=== PATIENT | male | born 1955 | race Caucasian/White ===

== ENCOUNTER 2018-07-10 06:11 | Inpatient (IN) ==
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
--- NOTE | 2018-06-11 11:09 | PAT Medication Instructions ---
Medication Instructions Date of Service June 11, 2018 Home Medications acetaminophen [Tylenol Arthritis 1,300 mg PO Q8H PRN cholecalciferol (vitamin D3) 5,000 unit PO QAM colestipol 1 g PO QPM cyanocobalamin (vitamin B-12) 1,000 mcg IM UD glipizide 5 mg PO BID lisinopril 10 mg PO QAM metformin 1,000 mg PO TID metoprolol succinate 25 mg PO QAM simvastatin 20 mg PO PM trazodone 50 mg PO QPM STOP taking 24 hours before surgery colestipol 1 g PO QPM DO NOT take the morning of surgery cholecalciferol (vitamin D3) 5,000 unit PO QAM cyanocobalamin (vitamin B-12) 1,000 mcg IM UD glipizide 5 mg PO BID lisinopril 10 mg PO QAM metformin 1,000 mg PO TID Take morning of surgery With a small sip of water, OTHERWISE NOTHING TO EAT OR DRINK AFTER MIDNIGHT: acetaminophen [Tylenol Arthritis 1,300 mg PO Q8H PRN (okay to take up to 4 hours prior to surgery if needed) metoprolol succinate 25 mg PO QAM Take evening before surgery acetaminophen [Tylenol Arthritis 1,300 mg PO Q8H PRN (if needed) glipizide 5 mg PO BID metformin 1,000 mg PO TID simvastatin 20 mg PO PM trazodone 50 mg PO QPM Other Notes If you have any questions please call us at [phone] or [phone] or [phone] or [phone]
--- NOTE | 2018-06-11 11:44 | XRay Report ---
XR chest Pre-admission PA/Lat CLINICAL HISTORY: Preoperative evaluation. COMPARISON STUDY: No previous studies for comparison. FINDINGS: Incidental note is made of cholecystectomy clips. Lung volumes are at the lower limits of n ormal. There is no consolidation or evidence for pulmonary edema. Linear bibasilar opacities suggest atelectasis or scarring. There is no consolidation. Cardiomediastinal silhouette is unremarkable. IMPRESSION: No acute cardiopulmonary findings. Electronically signed by: Raji Kinsey M.D. 06/11/2018 11:43 AM
[2018-06-11 12:02] LABS: Basophils # (auto) 0.04 K/uL (0-0.2); Basophils % (auto) 0.5 %; Eosinophils # (auto) 0.35 K/uL (0-0.5); Eosinophils % (auto) 4.1 %; Hematocrit (blood only) 39.5 % (42-52); Hemoglobin 12.2 g/dL (14.0-18.0); Immature Granulocytes # (auto) 0.04 K/uL (0.00-0.02); Immature Granulocytes % (auto) 0.5 %; Lymphocytes # (auto) 2.06 K/uL (1.2-3.4); Lymphocytes % (auto) 24.2 %; Mean Corpuscular Hgb Conc 30.9 g/dL (32-36); Mean Corpuscular Volume 74.4 fL (80-100); Mean Platelet Volume 10.3 fL (7.4-10.4); Monocytes # (auto) 0.69 K/uL (0.11-0.59); Monocytes % (auto) 8.1 %; Neutrophils # (auto) 5.33 K/uL (1.4-6.5); Neutrophils % (auto) 62.6 %; Platelet Count 235 K/uL (130-400); RDW Coefficient of Variation 17.1 % (11.5-14.5); RDW Standard Deviation 46.3 fL (36.4-46.3); Red Blood Count 5.31 M/uL (4.7-6.1); White Blood Count 8.51 K/uL (4.8-10.8)
[2018-06-11 12:12] LABS: INR 1.1 (0.9-1.1); Partial Thromboplastin Time 26.8 Seconds (21.0-31.0); Prothrombin Time 10.7 Seconds (9.0-12.0)
[2018-06-11 12:43] LABS: Microcytosis Present
[2018-06-11 13:10] LABS: Estimated Average Glucose 197 mg/dl; Hemoglobin A1C 8.5 % (4.5-5.6)
--- NOTE | 2018-07-05 00:14 | History and Physical Report ---
DATE OF ADMISSION: 07/10/2018 CHIEF COMPLAINT: Bilateral knee pain and discomfort, right side greater than left. HISTORY OF PRESENT ILLNESS: The patient is a 63-year-old gentleman from [place], who presents for surgical treatment of his knees. He has had a long history of bilateral knee pain and discomfort, right side a bit more than the left. He has been through extensive conservative treatment over time. Injections have not helped much recently. He has been on multiple medicines without much relief. He does have a history of cardiac disease and has to limit the meds that he takes. He has got pain all the time. The more he walks, the more it hurts. He has nighttime pain. He would like to proceed with knee replacement surgery. PAST MEDICAL HISTORY: Significant for: 1. Coronary artery disease status post TX in 2000, treated with stents and cleared by his tangled yarn spool straightener, Dr. Shah. 2. Diabetes x2 years with an A1c of 8.5. 3. Question history of a blood clot in his leg, treated with hospitalization, without any known clotting disorder. 4. Low back pain/spinal stenosis. 5. Obesity with BMI of 32. 6. History of compound fracture of the left femur. PAST SURGICAL HISTORY: Include: 1. Left femur fracture. 2. Cardiac stent placement. 3. Cholecystectomy. 4. Kidney stones. ALLERGIES: TO PENICILLIN WHICH CAUSES THROAT SWELLING. ALSO DESCRIBES ALLERGIES TO STREPTOMYCIN AND TERRAMYCIN. CURRENT MEDICINES: Include: 1. Glipizide 5 mg twice a day. 2. Metformin 1000 mg 3 times a day. 3. Metoprolol 25 mg. 4. Lisinopril 10 mg. 5. Colestipol 1 g a day. 6. Simvastatin 20 mg a day. 7. Trazodone 50 mg a day. 8. Vitamin D3. SOCIAL HISTORY: A 63-year-old male patient from [place]. He is . FAMILY HISTORY: Noncontributory. REVIEW OF SYSTEMS: Significant for cardiac disease with stents placed. He has been cleared by his tangled yarn spool straightener. He is also diabetic and has been with his medical doctor trying to get this under better control. He has this questionable history of a clot in the past. He has got no known clotting disorder. He is not on any anticoagulation. PHYSICAL EXAMINATION: GENERAL: Reveals a pleasant elderly male. Looks to be in pretty good health. HEENT: Benign. NECK: Supple, no lymphadenopathy. LUNGS: Clear to auscultation. HEART: Regular rate and rhythm. ABDOMEN: Soft, nontender, nondistended. EXTREMITIES: Grossly neurovascularly intact except as follows: Examination of the right knee reveals the patient walks with a valgus deformity to his knee which is worse with weightbearing. He has got a small knee effusion. Range of motion is about 10 degrees show full extension, 115 degrees of flexion. He is neurologically intact. Good refill. He has got no pain with hip motion. X-RAYS: X-ray of the right knee reveal advanced lateral compartment DJD. He has complete loss of his medial joint space. He has got advanced left knee ____ as well. ASSESSMENT: A 63-year-old male with underlying coronary artery disease and diabetes status post stent placement with bilateral knee degenerative joint disease, right side a bit worse than the left. He has failed conservative treatment and would like to have knee replacement surgery. PLAN: We are going to take him to the Operating Room and do a right total knee replacement. The risks and benefits of the procedure were explained to the patient including but not limited to DVT, PE, , infection, neurological injury, vascular injury, bleeding problem, pain, limited range of motion, stiffness, failure to relieve symptoms, incomplete relief of symptoms, need for further surgery in future, fracture, leg length inequality, nerve palsy, etc. The patient understands and desires to proceed. Informed consent was obtained. The patient was seen by his tangled yarn spool straightener and cleared for surgery without further testing. He did have a recent stress test, which was pretty normal. We did talk to him about holding his metformin the morning of surgery along with the lisinopril and making sure he takes his metoprolol. He is planning to be discharged home using [facility].
[~2018-07-10 06:11] MED LIST: ACETAMINOPHEN 500 MG TAB PO SCH; BUPIVACAINE LIPOSOME/PF 266 MG, BUPIVACAINE/EPINEPHRINE 50 ML, SODIUM CHLORIDE 0.9% 30 ... INFIL SCH; FAMOTIDINE 20 MG TAB PO SCH; GABAPENTIN 300 MG PO SCH; LR 60ML/HR IV SCH; METOCLOPRAMIDE HCL 10 MG TABLET PO SCH; SCOPOLAMINE 1.5 MG TDSY TD SCH; VANCOMYCIN HCL 1,500 MG in SODIUM CHLORIDE 0.9% 500 ML IV SCH
[2018-07-10] MEDS ORDERED: BUPIVACAINE 0.5 % 5 MG/1 ML PF 10ML VIAL ONE (06:26)
[2018-07-10] MEDS ORDERED: BUPIVACAINE/EPINEPHRINE 0.5% MPF 1:200,000 30 ML VIAL ONE (06:27)
[2018-07-10] MEDS ORDERED: DEXAMETHASONE SOD INJ 4 MG/ML VIAL ONE (06:27)
--- NOTE | 2018-07-10 06:56 | History & Physical Bridge Note ---
Date of Service July 10, 2018 History & Physical Bridge Note I have examined the patient, reviewed the History & Physical and in the interval since the performance of the History & Physical I have noted the following changes of clinical significance: no changes noted
[2018-07-10] MEDS ORDERED: VANCOMYCIN HCL 1 GM/270 ML BAG ONE (07:11)
[2018-07-10] MEDS: LR 500ML BOLUS, THEN 15ML/HR IV SCH ×3 (07:16→12:49)
[2018-07-10] MEDS ORDERED: fentaNYL citrate 100 MCG/2 ML VIAL ONE (07:17)
[2018-07-10] MEDS ORDERED: MIDAZOLAM HCL 1 MG/ML 2ML VIAL ONE ×2 (07:17→09:53)
[2018-07-10] MEDS ORDERED: BUPIVACAINE 0.25% 30 ML VIAL ONE (08:58)
[2018-07-10] MEDS ORDERED: BUPIVACAINE LIPOSOME 1.3% 266 MG/20 ML VIAL ONE (08:58)
[2018-07-10] MEDS ORDERED: SODIUM CHLORIDE 0.9% PF 50 ML VIAL ONE (08:58)
[2018-07-10] MEDS ORDERED: BACITRACIN INJ 50,000 UNIT VIAL ONE (08:58)
[2018-07-10] MEDS ORDERED: EPINEPHrine INJ 1 MG/ML AMP ONE (08:59)
[2018-07-10] MEDS ORDERED: PROPOFOL IV EMULSION 10 MG/ML 20 ML VIAL IV ONE (09:28)
[2018-07-10] MEDS ORDERED: KETAMINE HCL INJ 50 MG/ML 10 ML VIAL ONE (10:06)
--- NOTE | 2018-07-10 11:06 | Post Operative Brief Note ---
Immediate Post Op Note v1 Date of Surgery July 10, 2018 Pre & Post Diagnosis Operation Date: 07/10/18 08:50 Pre-Op Diagnosis: Right Knee Degenerative Joint Disease Post-Op Diagnosis: Right Knee Degenerative Joint Disease Procedure Operation Date: 07/10/18 08:50 Actual Procedures p Right Total Knee Arthroplasty(Right) - Catrachito Caraballo MD Surgeon Catrachito Caraballo MD [employer] Operative Luis Fernando, PAC Estimated Blood Loss 50 Findings Consistent with Post-Op Diagnosis Fluids 1500 cc Specimens Right Knee Drains Siddiqui Catheter (16fr siddiqui catheter placed by Angel Gould PA-C, without difficulty; siddiqui demonstrates clear yellow urine. Output measured and recorded by anesthesia.) Anesthesia Type Spinal MAC Complications none Disposition Accompanied Patient To Recovery: No Disposition: Recovery Room
--- NOTE | 2018-07-10 11:46 | XRay Report ---
XR knee RT 2V routine CLINICAL HISTORY: Surgical Post Op DEGENERATIVE ARTHRITIS COMPARISON: Outside x-ray dated 11/02/2017 DISCUSSION: There are postsurgical changes of a total right knee arthroplasty and patellar resurfacin g. The femoral and tibial components appear well seated. There are overlying skin rafale. There is a ir within the soft tissues consistent with recent surgery. IMPRESSION: Postsurgical changes of a total right knee arthroplasty. Electronically signed by: Tommy Ruiz M.D. 07/10/2018 11:45 AM
[2018-07-10] MEDS ORDERED: ePHEDrine sulfate 50 MG/ML AMP IV PRN (11:57)
[2018-07-10] MEDS ORDERED: ATROPINE SULFATE 0.1 MG/ML 10ML SYR IV PRN (11:57)
--- NOTE | 2018-07-10 11:58 | Anesthesiology Progress Note ---
Date of Service July 10, 2018 Anesthesia Post Procedure Vital Signs Vital Signs: Temp Pulse Pulse Resp BP Pulse Ox 07/10/18 11:44 36.5 C 58 L 15 125/66 100 07/10/18 11:35 60 16 103/68 100 07/10/18 11:25 57 L 16 117/89 94 07/10/18 11:15 36.3 C L 66 16 111/77 97 07/10/18 07:35 36.8 C 63 18 137/83 97 Pain Intensity Right Knee: Pain Intensity: 2 Notes Mental Status: alert / awake / arousable and participated in evaluation Patient Amnestic to Procedure: No (non distressing recall as discussed preop) Nausea / Vomiting: adequately controlled Pain: adequately controlled Airway Patency, RR, SpO2: stable & adequate BP & HR: stable & adequate Hydration State: stable & adequate Neuraxial Anesthesia: was administered and sensory block is resolving Anesthetic Complications: no major complications apparent
[2018-07-10] MEDS ORDERED: PHARMACY GLYCEMIC MGMT CONSULT STA (12:19)
[2018-07-10] MEDS ORDERED: NALOXONE HCL 0.4 MG/1 ML VIAL/CARP IV PRN (12:19)
[2018-07-10] MEDS ORDERED: GLUCOSE 40% GEL 15 GM TUBE PO PRN ×2 (12:19→13:48)
[2018-07-10] MEDS ORDERED: HYDROmorphone INJ 0.5 MG/0.5 ML SYR IV PRN (12:19)
[2018-07-10] MEDS ORDERED: BISACODYL 10 MG SUPP PR PRN (12:19)
[2018-07-10] MEDS ORDERED: DEXTROSE 50% 50 ML SYRINGE IV PRN ×2 (12:19→13:48)
[2018-07-10] MEDS ORDERED: ONDANSETRON INJ 2 MG/ML 2 ML VIAL IV PRN (12:19)
[2018-07-10] MEDS ORDERED: GLUCAGON FOR INJ 1 MG VIAL SQ PRN ×2 (12:19→13:48)
[2018-07-10] MEDS ORDERED: METOCLOPRAMIDE HCL INJ 5 MG/ML 2 ML VIAL IV PRN (12:19)
[2018-07-10] MEDS ORDERED: GLUCOSE 10 TABS/TUBE PO PRN ×2 (12:19→13:48)
[2018-07-10] MEDS ORDERED: TAMSULOSIN HCL 0.4 MG CAP PO PRN (12:19)
[2018-07-10] MEDS ORDERED: MAGNESIUM HYDROXIDE SUSP 30 ML UDC PO PRN (12:19)
[2018-07-10] MEDS ORDERED: VANCOMYCIN CONSULT ACTIVE PRN (12:19)
[2018-07-10] MEDS ORDERED: OXYCODONE HCL IR 5 MG TAB (IMMEDIATE RELEASE) PO PRN (12:19)
[2018-07-10] MEDS ORDERED: CARBOHYDRATES FOR HYPOGLYCEMIA PO PRN ×2 (12:19→13:48)
[2018-07-10] MEDS ORDERED: PHARMACY GLYCEMIC MGMT CONSULT PRN (13:04)
[2018-07-10] MEDS ORDERED: INSULIN GLARGINE SOLOSTAR 100 UNITS/ML 3 ML PEN SC ONE ×2 (14:00→21:00)
--- NOTE | 2018-07-10 14:01 | Pharmacy Report ---
Pharmacy Glycemic Short Note 2 - Date of Service July 10, 2018 - Glycemic Short BSG Results (Last 24 hours): 07/10/18 07/10/18 06:38 11:19 POC Glucose 170 H 151 H OUTPATIENT ANTIDIABETIC REGIMEN: * glipizide 5 mg PO BID + metformin 1000 mg PO TID (will confirm TID dosing with patient) * A1c 8.5% 06/11/18 ASSESSMENT: * 63 yr old T2DM male s/p R TKA * Pt was given a dose of dexamethasone 4 mg IV in the OR and is likely to experience steroid induced hyperglycemia for ~24 hours * Target BSG less then 150 mg/dL to reduce the risk of post operative infection/ complication * Pt is maintained on oral antidiabetic agents as an outpatient * Oral agents are not recommended for inpatient use d/t drug interactions, changing PO intake, and difficulty titrating for acute hyper/hypoglycemia. ADA recommends re-initiating outpatient oral agents 1-2 days prior to discharge if/ when appropriate if they were held on admission. * Will hold oral agents for admission and utilize SQ basal bolus insulin dosed based on weight PLAN FOR INPATIENT GLYCEMIC CONTROL: * Hold outpatient oral diabetes medications * Basal insulin * Lantus 20 units SQ now, then per scale at HS: * 0 units for BSG 180 or less * 10 units for BSG greater than 180 * Bolus insulin * NovoLog per scale ACHS or Q6hrs while NPO * Goal Range: Low 110 mg/dL - High 140 mg/dL * Correction Factor: 15 mg/dL/unit * Nutritional / Prandial insulin per carb ratio of 1 unit per 5 grams CHO consumed * Add overnight checks with coverage at 00 and 04 for POD #0
[2018-07-10] MEDS: KETOROLAC TROMETHAMINE 15 MG/ML VIAL IV SCH ×2 (14:29→18:19)
[2018-07-10] MEDS: ACETAMINOPHEN 500 MG TAB PO SCH ×2 (14:38→21:23)
[2018-07-10] MEDS: INSULIN ASPART 100 UNITS/ML 3 ML PEN SC SCH ×3 (15:21→21:19)
[2018-07-10] MEDS: SODIUM CHLORIDE 0.9% 1000ML 1,000 ML IV SCH ×2 (15:24→23:06)
--- NOTE | 2018-07-10 15:25 | Operative Report ---
DATE OF OPERATION: 07/10/2018 SURGEON: Catrachito Caraballo MD PROPERTY OFFICER: KAREN Terrazas PREOPERATIVE DIAGNOSIS: Right knee degenerative joint disease. POSTOPERATIVE DIAGNOSIS: Right knee degenerative joint disease. PROCEDURE PERFORMED: Right cemented posterior stabilized total knee arthroplasty. COMPLICATIONS: None. ESTIMATED BLOOD LOSS: 50 mL. FLUID REPLACEMENT: 1500 mL crystalloid fluid replacement. TOURNIQUET TIME: 61 minutes at 300 mmHg. ANESTHESIA: Spinal with adductor canal block. DRAINS: None. SPECIMENS: Right knee sent for pathology. OPERATIVE INDICATIONS: The patient is a 63-year-old gentleman who has had a long history of bilateral knee pain and discomfort, right side is a bit worse than the left. He has been through extensive conservative treatment over the years without adequate relief. X-rays show advanced bilateral knee DJD. He elected to proceed with right total knee arthroplasty. OPERATIVE FINDINGS: Operative findings revealed advanced right knee DJD. He had extensive grade 4 change of the lateral femoral condyle and posterolateral tibial plateau. He had a valgus deformity to his knee. Moderate-sized knee effusion. Some grade 2 and 3 changes elsewhere. OPERATIVE IMPLANTS: Operative implants consisted of: 1. A Biomet Vanguard size 65 right posterior stabilized femoral component. 2. A Biomet size 75 tibial tray. 3. A 10 mm posterior stabilized polyethylene insert. 4. A 31 x 8 all poly patella. OPERATIVE PROCEDURE: The patient was taken to the operating room, identified and placed on the operating table in supine position. All contact areas were appropriately padded. IV antibiotics provided by anesthesia team. A spinal anesthetic and adductor canal block had been provided in the holding area. Young catheter was placed in sterile fashion. A right thigh tourniquet was then placed and the right lower extremity was then prepped and draped in usual sterile fashion. The right leg was elevated and exsanguinated with Esmarch and tourniquet was placed at 300 mmHg. An anterior approach of the right knee was then performed through a longitudinal incision centered over the patella. Sharp dissection was carried out through the subcutaneous tissue down to the level of the extensor mechanism. A medial parapatellar arthrotomy incision was made. Some subperiosteal dissection was carried out medially. The fat pad was resected from beneath the patellar tendon. The lateral patellofemoral ligament was released. The patella was everted and knee was flexed. The osteophytes were taken off the distal femur. The ACL and PCL were then released from the distal femur and the tibia subluxated anteriorly. The external tibial alignment jig was then placed in the anterior face of the tibia and adjusted 14 mm medially. Proximal tibial cut was made to remove about 3-4 mm of bone from the medial side. It was sized to a size 75. Attention was then drawn to the femur. The distal femur was entered with a sharp drill bit. Intramedullary canal was suctioned. A right 5-degree valgus cutting guide was placed. Distal femoral cutting block was pinned in place. Distal femoral cut was made to take an additional 3 mm of bone off the distal femur. I then brought the knee out in extension, it was still a little bit tight, so we cut an additional 2 mm of bone off the distal femur. I then did a release of the IT band and a little posterior lateral capsule, taking great care to protect the peroneal nerve in order to equalize the extension gaps. The knee was then flexed. The femur was then sized to a size 65. The AP cutting block was pinned parallel to the epicondylar axis, which was 3 degrees of external rotation. The anterior cut, anterior chamfer, posterior cut, posterior chamfer cuts were made. Box cutting guide was placed and adjusted slightly lateral and the box cut was made. The knee was flexed. The remnants of medial and lateral meniscus were excised. The osteophytes were taken off the posterior aspect of the femur. I did have to release the popliteus in order to equalize the flexion gaps. A trial femoral component was placed. Tibial tray was pinned in maximum external rotation and drill and stem punch were used to create defect in proximal tibia for the tibial tray. The knee was then trialed and the 10 mm insert fit most appropriately. Attention was then drawn to the patella. The patella was cleaned of all soft tissues. Patella thickness measured 22 mm in thickness, it was cut down to 14. It was sized to a size 31 patella. Lug holes were drilled for 31 patella. The lateral osteophyte was removed. Patella button was placed. Knee was taken through range of motion and the patella tracked nicely with no thumbs test. Attention was then drawn toward placement of the permanent components. All trial components removed. Bone plug was placed in the distal femur to limit blood loss. A double batch of Palacos G cement was mixed. A Biomet Vanguard size 65 right posterior stabilized femoral component, size 75 tibial tray, 10 mm posterior stabilized polyethylene insert, and a 31 x 8 all poly patella then cemented in place. Knee was brought down into full extension until cement hardened. A final cement check was then performed. Pericapsular tissues were injected with a total of 100 mL of a combination of 20 mL of Exparel, 30 mL normal saline, 50 mL of 0.25% Marcaine with epinephrine. The tourniquet was then let down for a tourniquet time of 61 minutes. Hemostasis was assured with use of electrocautery. The extensor mechanism was then closed with a combination of #1 PDS suture and #1 Vicryl suture in [id number] fashion. Extensor mechanism was checked and found to be intact. The subcutaneous tissues were then closed with #2 Dexon suture in a buried interrupted fashion. Skin was closed with skin rafael. Leg was then cleaned, dried and a sterile dressing of Xeroform, 4 x 4, sterile cast padding and Sajan bandage were applied. The patient then transferred to the recovery room in stable condition. The patient tolerated the procedure well with no complication. All needle and sponge counts were correct at the end of the operation. I attest to the content of the Intraoperative Record and any orders documented therein. Any exception s are noted below.
[2018-07-10] MEDS ORDERED: CHECK SCOPOLAMINE PATCH PLACEMENT SCH (16:00)
[2018-07-10] MEDS: FERROUS GLUCONATE 324 MG TAB PO SCH (18:18)
[2018-07-10] MEDS ORDERED: VANCOMYCIN HCL 1,500 MG in SODIUM CHLORIDE 0.9% 500 ML IV SCH (19:00)
[2018-07-10] MEDS ORDERED: glipiZIDE 5 MG TAB PO SCH (21:00)
[2018-07-10] MEDS: SENNA 8.6 MG TAB PO SCH (21:22)
[2018-07-10] MEDS: TRAZODONE HCL 50 MG TAB PO SCH (21:23)
[2018-07-10] MEDS: ASPIRIN 81 MG ECTAB PO SCH (21:23)
[2018-07-10] MEDS: SIMVASTATIN 20 MG TAB PO SCH (21:23)
[2018-07-10] MEDS: DOCUSATE SODIUM 100 MG CAP PO SCH (21:24)
[2018-07-10] MEDS: TAPENTADOL HCL ER 50 MG TABCR PO SCH (21:38)
[2018-07-10] MEDS: COLESTIPOL HCL 1 GM TAB PO SCH (23:05)
[2018-07-11] MEDS: KETOROLAC TROMETHAMINE 15 MG/ML VIAL IV SCH ×4 (01:37→18:04)
[2018-07-11] MEDS: INSULIN ASPART 100 UNITS/ML 3 ML PEN SC SCH ×6 (04:03→21:10)
[2018-07-11] MEDS: ACETAMINOPHEN 500 MG TAB PO SCH ×3 (06:06→22:38)
[2018-07-11] MEDS ORDERED: Nursing to Pharmacy Communication ONE (06:11)
[2018-07-11 06:46] LABS: Hematocrit (blood only) 25.3 % (42-52); Hemoglobin 8.1 g/dL (14.0-18.0); Mean Corpuscular Volume 73.5 fL (80-100); Mean Platelet Volume 10.1 fL (7.4-10.4); Platelet Count 188 K/uL (130-400); RDW Coefficient of Variation 16.9 % (11.5-14.5); RDW Standard Deviation 45.6 fL (36.4-46.3); Red Blood Count 3.44 M/uL (4.7-6.1); White Blood Count 9.72 K/uL (4.8-10.8)
[2018-07-11 07:22] LABS: BUN Creatinine Ratio 22.5 (10-20); Calcium 7.2 mg/dl (8.5-10.1); Creatinine Clr Calc Pharmacy 90.2 ml/min; Est GFR (African American) 95.2; Est GFR (Non-African American) 82.2; Potassium 3.9 mmol/L (3.5-5.1)
[2018-07-11] MEDS: DOCUSATE SODIUM 100 MG CAP PO SCH ×2 (08:58→20:27)
[2018-07-11] MEDS ORDERED: CYANOCOBALAMIN 1000 MCG/ML VIAL IM SCH (09:00)
[2018-07-11] MEDS: ASPIRIN 81 MG ECTAB PO SCH ×2 (09:01→20:28)
[2018-07-11] MEDS: MULTIVITAMIN TAB PO SCH (09:02)
[2018-07-11] MEDS: METOPROLOL SUCC 25MG EXT REL TAB PO SCH (09:02)
[2018-07-11] MEDS: CHOLECALCIFEROL 1,000 UNITS TAB PO SCH (09:02)
[2018-07-11] MEDS: LISINOPRIL 10 MG TAB PO SCH (09:02)
[2018-07-11] MEDS: FERROUS GLUCONATE 324 MG TAB PO SCH ×2 (09:03→18:03)
[2018-07-11] MEDS: TAPENTADOL HCL ER 50 MG TABCR PO SCH ×2 (09:10→20:33)
--- NOTE | 2018-07-11 11:20 | Pharmacy Report ---
Pharmacy Glycemic Short Note 2 - Date of Service July 11, 2018 - Glycemic Short BSG Results (Last 24 hours): 07/10/18 07/10/18 07/10/18 11:19 17:02 20:27 Glucose POC Glucose 151 H 253 H 248 H 07/11/18 07/11/18 07/11/18 00:23 04:00 06:10 Glucose 93 POC Glucose 128 H 110 H 07/11/18 08:00 Glucose POC Glucose 104 H OUTPATIENT ANTIDIABETIC REGIMEN: * glipizide 5 mg PO BID + metformin 1000 mg PO TID * A1c 8.5% 06/11/18 ASSESSMENT: * 63 yr old T2DM male s/p R TKA * Pt was given a dose of dexamethasone 4 mg IV in the OR and is likely to experience steroid induced hyperglycemia for ~24 hours post op. Now resolved. * Target BSG less then 150 mg/dL to reduce the risk of post operative infection/ complication * Held outpatient oral agents 24hrs post op and utilized SQ basal bolus insulin regimen. Will start to taper insulin and add back outpatient oral agents that do not cause hypoglycemia. PLAN FOR INPATIENT GLYCEMIC CONTROL: * Hold outpatient oral diabetes medications (glipizide) * Resume meformin 1,000mg PO TIDM * Basal insulin: lower dosing to weight/insulin naive * Lantus 10 units SQ BID * Bolus insulin: loosen parameters * NovoLog per scale ACHS or Q6hrs while NPO * Goal Range: Low 110 mg/dL - High 140 mg/dL * Correction Factor: 20 mg/dL/unit * Nutritional / Prandial insulin per carb ratio of 1 unit per 7 grams CHO consumed
--- NOTE | 2018-07-11 12:06 | Progress Note ---
DATE: 07/11/2018 SUBJECTIVE: A 63-year-old gentleman postop day 1 from a right knee replacement. He is doing well. Pain is controlled. No chest pain or shortness of breath. Not feeling dizzy or lightheaded. OBJECTIVE: VITAL SIGNS: Temperature 36.4. Vital signs stable. GENERAL: Physical examination reveals a healthy, pleasant, middle-aged male. He is sitting up in bed, looks pretty comfortable. LUNGS: Clear to auscultation. HEART: Regular rate and rhythm. ABDOMEN: Soft, nontender, nondistended. EXTREMITIES: Grossly neurovascularly intact except as follows: Examination of the right leg reveals the leg to be well aligned. He does have a little bit of bloody drainage through the dressing. He can dorsiflex and plantarflex his foot appropriately. He is neurologically intact. LABORATORY DATA: Hemoglobin 8.1. Hematocrit 25.3. His electrolytes are stable. ASSESSMENT: A 63-year-old gentleman postop day 1 from right knee replacement, doing pretty well. His pain is controlled. He is anemic, but without current symptoms. PLAN: 1. DVT prophylaxis including thigh-high TEDs, SCDs, and aspirin twice a day. 2. PT and OT. Weight bear as tolerated. Right total knee protocol. 3. Pain control, doing pretty well with current pain regimen. 4. Anemia. Will continue iron supplementation. Will check his H and H tomorrow. We will transfuse him if he becomes symptomatic. 5. Disposition: Plan to discharge to home with some home health once medically recovered and stable.
[2018-07-11] MEDS: METFORMIN HCL 500 MG TAB PO SCH ×2 (13:58→18:03)
[2018-07-11] MEDS: SIMVASTATIN 20 MG TAB PO SCH (20:27)
[2018-07-11] MEDS: TRAZODONE HCL 50 MG TAB PO SCH (20:28)
[2018-07-11] MEDS: SENNA 8.6 MG TAB PO SCH (20:28)
[2018-07-11] MEDS: INSULIN GLARGINE SOLOSTAR 100 UNITS/ML 3 ML PEN SC SCH (21:09)
[2018-07-11] MEDS: COLESTIPOL HCL 1 GM TAB PO SCH (21:32)
[2018-07-12] MEDS: KETOROLAC TROMETHAMINE 15 MG/ML VIAL IV SCH ×2 (00:13→05:53)
[2018-07-12] MEDS: ACETAMINOPHEN 500 MG TAB PO SCH (05:53)
[2018-07-12 06:26] LABS: Hematocrit (blood only) 25.8 % (42-52); Hemoglobin 8.2 g/dL (14.0-18.0)
--- NOTE | 2018-07-12 07:28 | Progress Note ---
DATE: 07/12/2018 SUBJECTIVE: A 63-year-old gentleman postop day 2 from a right knee replacement. He is doing quite well. Pain is controlled. No chest pain or shortness of breath. Not feeling dizzy or lightheaded. OBJECTIVE: VITAL SIGNS: Temperature 36.6. Vital signs stable. GENERAL: Physical examination reveals a pleasant, middle-aged male. He was in his bathroom cleaning up, standing and looking quite comfortable when I visited him this morning. EXTREMITIES: Examination of the right leg reveals the dressing to be clean, dry and intact. Calf is soft and supple. He is neurologically intact. LABORATORY DATA: Hemoglobin 8.2. Hematocrit 35.8. ASSESSMENT: A 63-year-old gentleman postop day 2 from right knee replacement, doing well. His pain is controlled. He is a bit anemic, but his hemoglobin is stable and he is asymptomatic. PLAN: 1. DVT prophylaxis including thigh-high TEDs, SCDs, and aspirin twice a day. 2. PT/OT. Weight bear as tolerated. Right total knee protocol. 3. Pain control, doing well with current pain regimen. 4. Anemia. Continue iron supplementation. Hemoglobin stable. No symptoms. 5. Disposition: Plan to discharge to home with home health later today.
[2018-07-12] MEDS: METFORMIN HCL 500 MG TAB PO SCH (08:04)
[2018-07-12] MEDS: LISINOPRIL 10 MG TAB PO SCH (08:04)
[2018-07-12] MEDS: METOPROLOL SUCC 25MG EXT REL TAB PO SCH (08:04)
[2018-07-12] MEDS: FERROUS GLUCONATE 324 MG TAB PO SCH (08:04)
[2018-07-12] MEDS: MULTIVITAMIN TAB PO SCH (08:05)
[2018-07-12] MEDS: CHOLECALCIFEROL 1,000 UNITS TAB PO SCH (08:05)
[2018-07-12] MEDS: DOCUSATE SODIUM 100 MG CAP PO SCH (08:06)
[2018-07-12] MEDS: ASPIRIN 81 MG ECTAB PO SCH (08:06)
[2018-07-12] MEDS: INSULIN ASPART 100 UNITS/ML 3 ML PEN SC SCH (08:11)
[2018-07-12] MEDS: INSULIN GLARGINE SOLOSTAR 100 UNITS/ML 3 ML PEN SC SCH (08:11)
[2018-07-12] MEDS: TAPENTADOL HCL ER 50 MG TABCR PO SCH (08:15)
--- NOTE | 2018-07-13 16:05 | Discharge Summary ---
ADMITTING PHYSICIAN AND SURGEON: Dr. Catrachito Caraballo. ADMITTING DIAGNOSIS: Right knee degenerative joint disease. SURGERY PERFORMED: Right total knee arthroplasty. SECONDARY DIAGNOSES: Coronary artery disease, diabetes, questionable history of a blood clot, low back pain, spinal stenosis, obesity, history of a compound fracture of the left femur. CONSULTS: None obtained. HISTORY AND PHYSICAL EXAMINATION: Well documented in the patient's chart. HOSPITAL COURSE: The patient was admitted on 07/10/2018 underwent total knee arthroplasty, tolerated the procedure well and there were no complications. He was transferred to the PACU postoperatively and later to the orthopedic for further care. He was given vancomycin for antibiotic prophylaxis, LORRAINE stockings, SCDs and aspirin for DVT prophylaxis. Hemoglobin, hematocrit and vital signs were monitored during his hospital stay and remained stable. He developed some postoperative anemia, hemoglobin down to 8.2. He was given iron supplementation. Did not require any blood transfusions. There were no complications. By postoperative day 2, he was tolerating a diabetic diet. Pain was controlled with oral pain medicine. He was participating in physical therapy. On postop day 2, he was discharged home, set up with home health services, given printed discharge instructions including new prescriptions for extra strength Tylenol, aspirin, iron supplement and oxycodone. Continue his home medications with the exception of his home dose of Tylenol, which was changed. Continue physical therapy, weightbearing as tolerated, LORRAINE stockings. Follow up approximately 2 weeks postop or sooner if there are any problems or concerns.
== END 2018-07-12 11:50 | disposition home health service (06) | DRG 470 ==
LOC: ASU 06:11 → 3E 11:12

== ENCOUNTER 2018-12-25 07:36 | Inpatient (IN) ==
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
[~2018-12-25 07:36] MED LIST changes: +BUPIVACAINE 0.5 % 5 MG/1 ML PF 10ML VIAL ONE; +BUPIVACAINE/EPINEPHRINE 0.25% 1:200,000 30 ML VIAL ONE; +DEXAMETHASONE SOD INJ 4 MG/ML VIAL ONE; +GABAPENTIN 300 MG CAP PO SCH; -GABAPENTIN 300 MG PO SCH; +LR 500ML BOLUS, THEN 15ML/HR IV SCH; +TRANEXAMIC ACID 1,000 MG **IV Intra-op IV SCH
--- NOTE | 2018-12-25 08:49 | History & Physical Bridge Note ---
Date of Service December 25, 2018 History & Physical Bridge Note I have examined the patient, reviewed the History & Physical and in the interval since the performance of the History & Physical I have noted the following changes of clinical significance: no changes noted
[2018-12-25] MEDS ORDERED: ONDANSETRON INJ 2 MG/ML 2 ML VIAL ONE (09:30)
[2018-12-25] MEDS ORDERED: fentaNYL citrate 100 MCG/2 ML VIAL ONE (09:30)
[2018-12-25] MEDS ORDERED: LIDOCAINE HCL 2% 2 ML VIAL/AMP(20MG/ML) INFIL ONE (09:30)
[2018-12-25] MEDS ORDERED: MIDAZOLAM HCL 1 MG/ML 2ML VIAL ONE ×2 (09:30→09:35)
[2018-12-25] MEDS ORDERED: PROPOFOL IV EMULSION 10 MG/ML 20 ML VIAL IV ONE ×2 (09:30→13:11)
[2018-12-25] MEDS ORDERED: fentaNYL citrate 100 MCG/2 ML VIAL IV PRN (09:44)
[2018-12-25] MEDS ORDERED: ATROPINE SULFATE 0.1 MG/ML 10ML SYR IV PRN (09:44)
[2018-12-25] MEDS ORDERED: ePHEDrine sulfate 50 MG/ML AMP IV PRN (09:44)
[2018-12-25] MEDS ORDERED: ONDANSETRON INJ 2 MG/ML 2 ML VIAL IV PRN ×2 (09:44→14:32)
[2018-12-25] MEDS ORDERED: EPINEPHrine INJ 1 MG/ML AMP ONE (10:39)
[2018-12-25] MEDS ORDERED: BUPIVACAINE LIPOSOME 1.3% 266 MG/20 ML VIAL ONE (10:40)
[2018-12-25] MEDS ORDERED: BACITRACIN INJ 50,000 UNIT VIAL ONE (10:40)
[2018-12-25] MEDS ORDERED: BUPIVACAINE 0.5 % 5 MG/1 ML MPF 30ML VIAL ONE (10:40)
[2018-12-25] MEDS ORDERED: BUPIVACAINE 0.25% 30 ML VIAL ONE (10:41)
[2018-12-25] MEDS ORDERED: VANCOMYCIN HCL 1000MG/20ML VIAL ONE (10:44)
[2018-12-25] MEDS ORDERED: SODIUM CHLORIDE 0.9% PF 50 ML VIAL ONE (10:48)
--- NOTE | 2018-12-25 13:28 | Post Operative Brief Note ---
Immediate Post Op Note v1 Date of Surgery December 25, 2018 Pre & Post Diagnosis Operation Date: 12/25/18 10:40 Pre-Op Diagnosis: LEFT KNEE DEGENERATIVE JOINT DISEASE WITH KNEE PAIN Post-Op Diagnosis: LEFT KNEE DEGENERATIVE JOINT DISEASE WITH KNEE PAIN Procedure Operation Date: 12/25/18 10:40 Actual Procedures p Left Total Knee Arthroplasty cemented(Left) - Catrachito Caraballo MD Surgeon Catrachito Caraballo MD National Sales Trainer Luis Fernando, PAC Estimated Blood Loss 50 Findings Consistent with Post-Op Diagnosis Fluids 1000 cc Specimens Left Knee Drains Young Catheter Anesthesia Type Spinal MAC Complications none Disposition Accompanied Patient To Recovery: No Disposition: Recovery Room
--- NOTE | 2018-12-25 14:04 | Anesthesiology Progress Note ---
Date of Service December 25, 2018 Anesthesia Post Procedure Vital Signs Vital Signs: Temp Pulse Pulse Resp BP Pulse Ox 12/25/18 13:55 37 C 50 L 15 109/61 100 12/25/18 13:45 56 L 15 116/66 99 12/25/18 13:35 36.4 C L 65 16 110/63 99 12/25/18 08:28 36.5 C 53 L 20 129/83 97 Pain Intensity Left Knee: Pain Intensity: 2 Transfer of Care Handoff Completed per policy Notes Mental Status: alert / awake / arousable Patient Amnestic to Procedure: Yes Nausea / Vomiting: adequately controlled Pain: adequately controlled Airway Patency, RR, SpO2: stable & adequate BP & HR: stable & adequate Hydration State: stable & adequate Neuraxial Anesthesia: was administered and sensory block is resolving Anesthetic Complications: no major complications apparent
--- NOTE | 2018-12-25 14:06 | XRay Report ---
LEFT KNEE 2 VIEWS History: Left total knee arthroplasty. Degenerative arthritis. Postop. FINDINGS: The patient is status post a left total knee arthroplasty. The hardware is intact. No fract ure or dislocation. Skin rafael are in place. Old, healed femoral shaft fracture is partially visual ized. IMPRESSION: Left total knee arthroplasty. No evidence for hardware complication. Electronically signed by: Omar Glass M.D. 12/25/2018 2:05 PM
[2018-12-25] MEDS ORDERED: CARBOHYDRATES FOR HYPOGLYCEMIA PO PRN (14:32)
[2018-12-25] MEDS ORDERED: TRAMADOL HCL 50 MG TABLET PO PRN (14:32)
[2018-12-25] MEDS ORDERED: DEXTROSE 50% 50 ML SYRINGE IV PRN (14:32)
[2018-12-25] MEDS ORDERED: TAMSULOSIN HCL 0.4 MG CAP PO PRN (14:32)
[2018-12-25] MEDS ORDERED: HYDROmorphone INJ 0.5 MG/0.5 ML SYR IV PRN (14:32)
[2018-12-25] MEDS ORDERED: glipiZIDE 5 MG TAB PO SCH (14:32)
[2018-12-25] MEDS ORDERED: GLUCAGON FOR INJ 1 MG VIAL SQ PRN (14:32)
[2018-12-25] MEDS ORDERED: GLUCOSE 10 TABS/TUBE PO PRN (14:32)
[2018-12-25] MEDS ORDERED: METOCLOPRAMIDE HCL INJ 5 MG/ML 2 ML VIAL IV PRN (14:32)
[2018-12-25] MEDS ORDERED: PHARMACY GLYCEMIC MGMT CONSULT STA (14:32)
[2018-12-25] MEDS ORDERED: ALUMINUM/MAGNESIUM SUSP 30 ML UDC PO PRN (14:32)
[2018-12-25] MEDS ORDERED: NALOXONE HCL 0.4 MG/1 ML VIAL/CARP IV PRN (14:32)
[2018-12-25] MEDS ORDERED: VANCOMYCIN CONSULT ACTIVE PRN (14:32)
[2018-12-25] MEDS ORDERED: TRAZODONE HCL 50 MG TAB PO PRN (14:32)
[2018-12-25] MEDS ORDERED: BISACODYL 10 MG SUPP PR PRN (14:32)
[2018-12-25] MEDS ORDERED: GLUCOSE 40% GEL 15 GM TUBE PO PRN (14:32)
[2018-12-25] MEDS ORDERED: MAGNESIUM HYDROXIDE SUSP 30 ML UDC PO PRN (14:32)
[2018-12-25] MEDS ORDERED: PHARMACY GLYCEMIC MGMT CONSULT PRN (14:39)
[2018-12-25] MEDS: SODIUM CHLORIDE 0.9% 1000ML 1,000 ML IV SCH (15:49)
[2018-12-25] MEDS ORDERED: LANTUS PER UNIT CHARGE SQ ONE (16:30)
--- NOTE | 2018-12-25 16:30 | Pharmacy Report ---
Pharmacy Glycemic Short Note 2 - Date of Service December 25, 2018 - Glycemic Short BSG Results (Last 24 hours): 12/25/18 12/25/18 08:19 13:41 POC Glucose 100 H 103 H OUTPATIENT ANTIDIABETIC REGIMEN: * Glipizide 5mg PO TID * Metformin 1gm PO BID * HbA1c: 8.5% (06/11/18) -- updated A1c pending with AM labs ASSESSMENT: * Mr Aceves is a 63yo diabetic male POD 0 s/p L TKA with Dr Caraballo this morning. * Patient received 4mg IV dexamethasone pre-op, which is expected to contribute to significant steroid-induced hyperglycemia. * Patient's initiated on SQ basal/bolus regimen post-op in an attempt to prevent hyperglycemia, to promote wound healing and discourage post-op infection. Insulin initiated somewhat conservatively, d/t BSGs 100,103 thus far today. * Will continue to follow and adjust insulin as needed post-op PLAN FOR INPATIENT GLYCEMIC CONTROL: * Hold outpatient oral diabetes medications * Will consider resuming tomorrow if patient is tolerating diet and renal function is appropriate. * Basal insulin * Lantus 20 units SQ x1 dose * Will assess the need for additional doses tomorrow morning * Bolus insulin * NovoLog per scale ACHS or Q6hrs while NPO * Goal Range: Low 110 mg/dL - High 150 mg/dL * Correction Factor: 25 mg/dL/unit * Nutritional / Prandial insulin per carb ratio of 1 unit per 8 grams CHO consumed PLAN FOR DISCHARGE: * pending A1c results
[2018-12-25] MEDS: ACETAMINOPHEN 500 MG TAB PO SCH ×2 (16:43→22:30)
[2018-12-25] MEDS: KETOROLAC 30 MG/ML VIAL IV SCH ×2 (16:44→21:08)
[2018-12-25] MEDS: CHECK SCOPOLAMINE PATCH PLACEMENT SCH (16:49)
[2018-12-25] MEDS: ASCORBIC ACID 500 MG TAB PO SCH (17:28)
[2018-12-25] MEDS: FERROUS GLUCONATE 324 MG TAB PO SCH (17:28)
[2018-12-25] MEDS: INSULIN ASPART 100 UNITS/ML 3 ML PEN SC SCH ×2 (18:24→21:15)
[2018-12-25] MEDS ORDERED: TRANEXAMIC ACID 1,000 MG in 0.9 % SODIUM CHLORIDE 100 ML IV SCH (19:30)
[2018-12-25] MEDS ORDERED: VANCOMYCIN HCL 1,500 MG in SODIUM CHLORIDE 0.9% 500 ML IV SCH (20:00)
[2018-12-25] MEDS: ASPIRIN 81 MG ECTAB PO SCH (21:11)
[2018-12-25] MEDS: SIMVASTATIN 20 MG TAB PO SCH (21:12)
[2018-12-25] MEDS: DOCUSATE SODIUM 100 MG CAP PO SCH (21:14)
[2018-12-25] MEDS: SENNA 8.6 MG TAB PO SCH (21:15)
[2018-12-26] MEDS: CHECK SCOPOLAMINE PATCH PLACEMENT SCH (00:02)
[2018-12-26] MEDS: KETOROLAC 30 MG/ML VIAL IV SCH ×4 (03:19→20:38)
[2018-12-26] MEDS: SODIUM CHLORIDE 0.9% 1000ML 1,000 ML IV SCH (03:23)
[2018-12-26] MEDS ORDERED: Nursing to Pharmacy Communication ONE (03:23)
--- NOTE | 2018-12-26 03:55 | Operative Report ---
DATE OF OPERATION: 12/25/2018 SURGEON: Catrachito Caraballo MD. GAS MASK INSPECTOR: Justin Wilkerson PA-C. PREOPERATIVE DIAGNOSIS: Left knee degenerative joint disease. POSTOPERATIVE DIAGNOSIS: Left knee degenerative joint disease. PROCEDURE PERFORMED: Left cemented posterior stabilized total knee arthroplasty. COMPLICATIONS: None. ESTIMATED BLOOD LOSS: 50 mL. FLUID REPLACEMENT: 1000 mL crystalloid fluid replacement. TOURNIQUET TIME: 75 minutes at 300 mmHg. ANESTHESIA: Spinal with adductor canal block. DRAINS: None. SPECIMENS: Left knee sent for pathology. OPERATIVE INDICATIONS: The patient is a 63-year-old gentleman who has a long history of knee problems and arthritis. He underwent a right knee replacement earlier this year with an excellent result. He has continued to be limited by left knee pain. He has a pretty extensive history with his left leg with an open fracture 40 years ago. He had no problems with infection, but developed progressive deformity, pain and discomfort in the knee. X-rays showed advanced disease. He has failed all conservative care. 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 OPERATIVE FINDINGS: Operative findings revealed advanced left knee DJD. Extensive grade 4 [id number] disease and eburnation of the medial compartment with a fixed varus deformity and rotational deformity to his knee as well. Large knee joint effusion. OPERATIVE IMPLANTS: Consisted of: 1. Biomet Vanguard size 65 left posterior stabilized femoral component. 2. Biomet 75 tibial tray. 3. A 10 mm posterior stabilized polyethylene insert. 4. A 31 x 8 all poly patella. OPERATIVE PROCEDURE: The patient was taken to the operating room, identified and placed on the operating table in supine position. All contact areas were appropriately padded. IV antibiotics provided by anesthesia team. A spinal anesthetic and adductor canal block had been provided in the holding area. Young catheter was placed in sterile fashion. Left thigh tourniquet was then placed and left lower extremity was then prepped and draped in usual sterile fashion. Left leg was elevated and exsanguinated with Esmarch and tourniquet was placed at 300 mmHg. An anterior approach to the left knee was then performed through a longitudinal incision centered over the patella. Sharp dissection was carried through the subcutaneous tissue down to the level of the extensor mechanism. A medial parapatellar arthrotomy incision was made. Subperiosteal dissection was carried out medially. I did a pretty extensive dissection due to the varus deformity. The ACL was absent. The fat pad was resected from beneath the patellar tendon. The lateral patellofemoral ligament was released and the knee was flexed. The osteophytes were taken off the distal femur. The ACL was absent. The PCL was released from the distal femur. The knee was flexed. The tibia was subluxated anteriorly. I then placed the tibial cutting guide, which had been prefabricated based on the MRI studies in the proximal tibia. The wires were placed for the cutting guide. The templating device was removed and the tibial cutting guide was placed and a proximal tibial cut was made to remove about a millimeter of bone from the most deficient aspect of the posteromedial tibial plateau. Some osteophytes were taken off medial and posteromedially. Tibia was then sized to a size 75. Attention was then drawn to the femur. The cutting guide for the femur was placed on the anterior medial aspect of the femur. The pins were placed through the 2 superior holes and then the holes were drilled for the 2 distal holes. The templating device was removed and the distal femoral cutting guide was placed. The initial distal femoral cut was made to take an additional 3 mm of bone off the distal femur. Even with this, I had not taken enough bone, so I took 2 additional millimeters and then 2 more additional millimeters. At this point, I felt I had enough of an extension gap. The knee was then flexed. I then assessed the holes for the AP cutting block and it still looked a little bit internally rotated to me, so I sized the femur to a 65. I used the sizing guide and rotated it 5 degrees of external rotation. The pins were then used to create holes for the AP cutting block in 5 degrees of external rotation. This was probably 2-3 degrees of external rotation compared to what the templated device was. The AP cutting block was pinned parallel to the epicondylar axis and then the posterior cut, posterior chamfer, anterior cut, anterior chamfer cuts were made. Box cutting guide was placed and adjusted slightly lateral to maximize patellofemoral tracking and the box cut was made. The knee was flexed. The remnants of medial and lateral menisci were excised. The osteophytes were taken off the posterior aspect of the femur. Trial femoral component was placed. The tibial tray was then pinned in maximum external rotation, and drill and stem punch were used to create defect in proximal tibia for the tibial tray. I then trialed the knee and a 10 mm insert fit most appropriately. Attention was then drawn to the patella. The patella was cleaned of all soft tissues. Patella measured 22 mm in thickness, it was cut down to 13. It was sized to a size 31 x 8 all poly patella. Lug holes were drilled for 31 patella. Lateral osteophyte was removed. Patella button was placed. Knee was taken through range of motion and the patella tracked nicely with no thumbs test. Attention was then drawn toward placement of permanent components. All trial implants were removed. The wound was irrigated with copious amounts of pulsatile lavage solution. A double batch of Palacos G cement was mixed with an additional gram of vancomycin. On mixing the first batch, the mixing machine broke, so we had to open another mixing machine and then mix another batch. Once the cement was mixed, a Biomet size 65 left posterior stabilized femoral component, size 75 tibial tray, 10 mm posterior stabilized polyethylene insert, and a 31 x 8 all poly patella then cemented in place. Knee was brought on to full extension until cement hardened. A final cement check was then performed. The wound was once again irrigated. I did inject locally with 100 mL of combination of 20 mL of Exparel, 30 mL of normal saline, 50 mL of 0.25% Marcaine with epinephrine. The patient did receive 1 g of tranexamic acid. The tourniquet was then let down for a tourniquet time of 75 minutes. Hemostasis was assured with use of electrocautery. The extensor mechanism was then closed with a combination of #1 PDS suture and #1 Vicryl suture in a [id number] fashion. Extensor mechanism was checked and found to be intact. The subcutaneous tissues were then closed with #2 Dexon suture in a buried interrupted fashion. Skin was closed with skin rafael. Leg was then cleaned, dried and a sterile dressing of Xeroform, 4 x 4, sterile cast padding and Sajan bandage were applied. The patient then transferred to the recovery room in stable condition. The patient tolerated the procedure well with no complication. All needle and sponge counts were correct at the end of the operation. I attest to the content of the Intraoperative Record and any orders documented therein. Any exception s are noted below.
--- NOTE | 2018-12-26 04:31 | Progress Note ---
DATE: 12/25/2018 SUBJECTIVE: A 63-year-old gentleman postop from a left knee replacement. He is doing well. Not having any pain yet. No chest pain or shortness of breath. Not feeling dizzy or lightheaded. OBJECTIVE: VITAL SIGNS: Temperature 36.7. Vital signs stable. PHYSICAL EXAMINATION: GENERAL: Shows a pleasant, middle-aged male. He is sitting up in bed, looks quite comfortable. LUNGS: Clear to auscultation. HEART: Has a regular rate and rhythm. ABDOMEN: Soft, nontender, nondistended. EXTREMITIES: Grossly neurovascularly intact except as follows: Examination of the left lower extremity reveals the leg to be well aligned. Dressing is clean, dry, and intact. He can dorsiflex and plantarflex his foot appropriately. He can do a good straight leg raise. X-RAYS: X-rays of the left knee from recovery room reviewed. It shows cemented posterior stabilized total knee arthroplasty. Components looked to be in good position. No signs of problems. ASSESSMENT: A 63-year-old gentleman postop from a left knee replacement, doing well. Pain is controlled. He is neurologically intact. PLAN: 1. DVT prophylaxis including thigh-high TEDs, SCDs, and aspirin twice a day. 2. PT/OT. Weight bear as tolerated. Left total knee protocol. 3. Pain control, doing well with current pain regimen. 4. IV antibiotics x24 hours. 5. Disposition: Plan to discharge to home with some home health once adequately recovered and medically stable.
[2018-12-26] MEDS: ACETAMINOPHEN 500 MG TAB PO SCH ×3 (06:03→20:38)
[2018-12-26 06:57] LABS: Hematocrit (blood only) 29.5 % (42-52); Hemoglobin 8.9 g/dL (14.0-18.0); Mean Corpuscular Hemoglobin 21.8 pg (25-34); Mean Corpuscular Hgb Conc 30.2 g/dL (32-36); Mean Corpuscular Volume 72.1 fL (80-100); Mean Platelet Volume 10.3 fL (7.4-10.4); Platelet Count 196 K/uL (130-400); RDW Coefficient of Variation 17.3 % (11.5-14.5); RDW Standard Deviation 46.1 fL (36.4-46.3); Red Blood Count 4.09 M/uL (4.7-6.1); White Blood Count 11.93 K/uL (4.8-10.8)
[2018-12-26 07:35] LABS: Creatinine Clr Calc Pharmacy 72.6 ml/min; Est GFR (African American) 76.7; Est GFR (Non-African American) 66.2; Potassium 4.1 mmol/L (3.5-5.1)
[2018-12-26 08:21] LABS: Estimated Average Glucose 174 mg/dl; Hemoglobin A1C 7.7 % (4.5-5.6)
[2018-12-26] MEDS: FERROUS GLUCONATE 324 MG TAB PO SCH ×2 (08:41→16:12)
[2018-12-26] MEDS: MULTIVITAMIN TAB PO SCH (08:42)
[2018-12-26] MEDS: ASPIRIN 81 MG ECTAB PO SCH ×2 (08:42→20:37)
[2018-12-26] MEDS: DOCUSATE SODIUM 100 MG CAP PO SCH ×2 (08:42→20:41)
[2018-12-26] MEDS: ASCORBIC ACID 500 MG TAB PO SCH ×2 (08:42→16:12)
[2018-12-26] MEDS: METOPROLOL SUCC 25MG EXT REL TAB PO SCH (08:42)
[2018-12-26] MEDS: CHOLECALCIFEROL 1,000 UNITS TAB PO SCH (08:43)
[2018-12-26] MEDS: LISINOPRIL 10 MG TAB PO SCH (08:43)
[2018-12-26] MEDS: INSULIN ASPART 100 UNITS/ML 3 ML PEN SC SCH ×4 (08:47→21:12)
[2018-12-26] MEDS ORDERED: LANTUS PER UNIT CHARGE SQ ONE (09:00)
--- NOTE | 2018-12-26 15:44 | Pharmacy Report ---
Pharmacy Glycemic Short Note 2 - Date of Service December 26, 2018 - Glycemic Short BSG Results (Last 24 hours): 12/25/18 12/25/18 12/26/18 17:32 20:36 06:26 Glucose 124 H POC Glucose 252 H 213 H 12/26/18 12/26/18 08:05 12:00 Glucose POC Glucose 121 H 131 H OUTPATIENT ANTIDIABETIC REGIMEN: * Glipizide 5mg PO TID * Metformin 1gm PO BID * HbA1c: 8.5% (06/11/18) -- updated A1c pending with AM labs ASSESSMENT: 12/26/18: * BSGs were elevated yesterday evening, which was expected following IV steroids. * BSGs have been better controlled today. * Will plan to resume patient's home regimen tomorrow. 12/25/18 * Mr Aceves is a 63yo diabetic male POD 0 s/p L TKA with Dr Caraballo this morning. * Patient received 4mg IV dexamethasone pre-op, which is expected to contribute to significant steroid-induced hyperglycemia. * Patient's initiated on SQ basal/bolus regimen post-op in an attempt to prevent hyperglycemia, to promote wound healing and discourage post-op infection. Insulin initiated somewhat conservatively, d/t BSGs 100,103 thus far today. * Will continue to follow and adjust insulin as needed post-op PLAN FOR INPATIENT GLYCEMIC CONTROL: * Hold outpatient oral diabetes medications * Resume glipizide and metformin tomorrow. Patient appears to be tolerating diet. * Basal insulin * Lantus 10 units SQ x1 dose this morning. * Expect that effects of dexamethasone are diminishing and pt will not require further basal insulin. * Bolus insulin * NovoLog per scale ACHS or Q6hrs while NPO * Goal Range: Low 110 mg/dL - High 150 mg/dL * Correction Factor: 25 mg/dL/unit * Nutritional / Prandial insulin per carb ratio of 1 unit per 8 grams CHO consumed * Will loosen parameters tomorrow and stop providing carb coverage tomorrow once oral agents have been resumed. PLAN FOR DISCHARGE: * Patient's A1c (7.7%) indicates acceptable glycemic control as an outpatient. * Expect that patient may resume home regimen on discharge, as long as he does not report having episodes of hypoglycemia.
--- NOTE | 2018-12-26 18:23 | Progress Note ---
DATE: 12/26/2018 SUBJECTIVE: A 63-year-old gentleman postop day 1 from left knee replacement. He is doing great. No pain really. Therapy has gone well. No chest pain or shortness of breath. Not feeling dizzy or lightheaded. OBJECTIVE: VITAL SIGNS: Temperature 36.5. Vital signs stable. PHYSICAL EXAMINATION: GENERAL: Shows a pleasant, middle-aged male. He is sitting at the bedside looks quite comfortable. EXTREMITIES: Examination of the left knee reveals the dressing to be clean, dry and intact. Leg is well aligned. He can dorsiflex and plantarflex his foot appropriately. He can do a good straight leg raise. LABORATORY DATA: Hemoglobin 8.9. Hematocrit 29.5. Electrolytes are stable. ASSESSMENT: A 63-year-old gentleman postop day 1 from left knee replacement, doing pretty well. Pain is controlled. He is anemic, but without symptoms. PLAN: 1. DVT prophylaxis including thigh-high TEDs, SCDs, and aspirin twice a day. 2. PT/OT. Weight bear as tolerated. Left total knee protocol. 3. Pain control, doing well with current pain regimen. 4. Anemia. Will continue iron supplementation. Currently asymptomatic. 5. Disposition: Plan to discharge to home with some home health once adequately recovered.
[2018-12-26] MEDS: SIMVASTATIN 20 MG TAB PO SCH (20:37)
[2018-12-26] MEDS: SENNA 8.6 MG TAB PO SCH (20:41)
[2018-12-27] MEDS: KETOROLAC 30 MG/ML VIAL IV SCH ×2 (03:35→10:05)
[2018-12-27] MEDS: ACETAMINOPHEN 500 MG TAB PO SCH (05:57)
[2018-12-27] MEDS ORDERED: glipiZIDE 5 MG TAB PO SCH (07:30)
[2018-12-27] MEDS ORDERED: INSULIN ASPART 100 UNITS/ML 3 ML PEN SC SCH (07:30)
[2018-12-27] MEDS: MULTIVITAMIN TAB PO SCH (07:42)
[2018-12-27] MEDS: METOPROLOL SUCC 25MG EXT REL TAB PO SCH (07:42)
[2018-12-27] MEDS: CHOLECALCIFEROL 1,000 UNITS TAB PO SCH (07:42)
[2018-12-27] MEDS: LISINOPRIL 10 MG TAB PO SCH (07:42)
[2018-12-27] MEDS: ASPIRIN 81 MG ECTAB PO SCH (07:43)
[2018-12-27] MEDS: ASCORBIC ACID 500 MG TAB PO SCH (07:44)
[2018-12-27] MEDS: DOCUSATE SODIUM 100 MG CAP PO SCH (07:44)
[2018-12-27] MEDS ORDERED: METFORMIN HCL 500 MG TAB PO SCH (08:00)
--- NOTE | 2018-12-27 09:41 | Progress Note ---
DATE: 12/27/2018 SUBJECTIVE: A 63-year-old gentleman postop day 2 from a left knee replacement. He is doing well. States he has minimal pain. No chest pain or shortness of breath. Not feeling dizzy or lightheaded. Therapy went well. OBJECTIVE: VITAL SIGNS: Temperature 36.8. Vital signs stable. PHYSICAL EXAMINATION: GENERAL: Shows a pleasant, middle-aged male. He is sitting up at the bedside chair eating breakfast. Looks comfortable. EXTREMITIES: Examination of the left leg reveals the dressing to be clean, dry, and intact. He can dorsiflex and plantarflex his foot appropriately. He is neurologically intact. ASSESSMENT: A 63-year-old gentleman postoperative day 2 from left knee replacement, doing well. His pain is controlled. He is neurologically intact. PLAN: 1. DVT prophylaxis including thigh-high TEDs, SCDs, and aspirin twice a day. 2. PT/OT. Weight bear as tolerated. Left total knee protocol. 3. Pain control, doing well with current pain regimen. 4. Disposition: Plan to discharge to home with some home health later today.
[2018-12-27] MEDS: FERROUS GLUCONATE 324 MG TAB PO SCH (10:05)
--- NOTE | 2018-12-28 07:59 | Coding Query ---
ANEMIA To promote full compliance with coding requirements relating to patient care, physician participation is requested in all cases of medical records coder uncertainty. Please assist us with the question(s) below: Coding Question(s): The record reflects the following clinical findings: 12/26/18 PROGRESS NOTE INDICATED ANEMIA, ASYMPTOMATIC, TREATED WITH IRON SUPPLEMENTATION If these findings are indicative of anemia, please specify the known or suspected type by placing an "X" within the parenthesis (x). If other, please document type. Examples are: (x ) Acute blood loss anemia (x ) Acute Postoperative blood loss anemia ( x) Acute postoperative anemia due to dilutional fluids ( ) Chronic blood loss anemia ( ) Anemia of chronic disease ( ) Aplastic anemia ( ) Anemia due to renal disease ( ) Anemia in neoplastic disease ( ) Iron deficient anemia ( ) Anemia, unspecified or other ( ) Other: (please specify) ( ) Unable to determine Thank you April GONCALVES
--- NOTE | 2019-01-05 19:02 | Discharge Summary ---
ADMITTING PHYSICIAN AND SURGEON: Dr. Catrachito Caraballo. ADMITTING DIAGNOSIS: Left knee degenerative joint disease. SURGERY PERFORMED: Left total knee arthroplasty. CONSULTS: None were obtained. History and physical examination were well documented within the patient's chart. HOSPITAL COURSE: Mr. Aceves was admitted to [facility] on 12/25/2018 and underwent a left total knee arthroplasty. He tolerated the procedure well and there were no complications. He was transferred to PACU postoperatively and later to the orthopedic floor for further care. He was given Ancef as antibiotic prophylaxis, LORRAINE stockings, SCDs as well as aspirin for DVT prophylaxis. Hemoglobin, hematocrit and vital signs were monitored throughout the hospital stay and did remain stable. He did not require any blood transfusions. By postop day 2, he was tolerating a regular diet. Pain was controlled with oral pain medication. He was participating in physical therapy as well as occupational therapy. By postop day #2, he was discharged home and set up with home health services. He was given printed discharge instructions as well as new prescriptions for Tylenol, aspirin, tramadol as well as an iron tablet. Continue with physical therapy as well as being weightbearing as tolerated. We will see him in the office in 2 weeks postoperatively or sooner if there are any other problems or concerns.
[2019-01-12] MEDS ORDERED: CYANOCOBALAMIN 1000 MCG/ML VIAL IM SCH (09:00)
== END 2018-12-27 11:27 | disposition home health service (06) | DRG 470 ==
LOC: ASU 07:36 → 3E 13:34

== ENCOUNTER 2024-07-15 08:11 | Observation (INO) ==
--- NOTE | 2024-06-13 11:26 | PAT Medication Instructions ---
Medication Instructions Date of Service June 13, 2024 Home Medications Medication Instructions Recorded aspirin 81 mg tablet,delayed 81 mg PO DAILY #30 tabs 08/12/20 release lisinopril 10 mg tablet 10 mg PO QPM #90 tabs 12/07/23 metoprolol succinate 25 mg 25 mg PO QAM #90 tabs 12/07/23 tablet,extended release 24 hr simvastatin 20 mg tablet 20 mg PO HS #90 tabs 12/07/23 insulin glargine 100 unit/mL (3 12 unit (0.12 mL) subcut QPM 90 03/04/24 mL) subcutaneous pen (InfluxDBaglar days #15 mL KwikPen U-100 Insulin) pen needle, diabetic 31 gauge x #100 ea 04/29/2410/11" (Sure-Fine Pen [place]) empagliflozin 25 mg tablet 25 mg PO QAM #90 tabs 06/12/24 (Jardiance) cholecalciferol (vitamin D3) 125 mcg (5,000 unit) tablet (Vitamin D3) 5,000 unit PO DAILY PRN cyanocobalamin (vitamin B-12) 1,000 mcg/mL injection kit 1,000 mcg IM MONTHLY aspirin 81 mg tablet,delayed release 81 mg PO DAILY latanoprost 0.005 % eye drops 1 drp ophthalmic (eye) QPM timolol 0.5 % eye drops 1 drp ophthalmic (eye) QPM omega-3 fatty acids 1,000 mg PO DAILY magnesium 100 mg tablet 200 mg PO DAILY lisinopril 10 mg tablet 10 mg PO QPM metoprolol succinate 25 mg tablet,extended release 24 hr 25 mg PO QAM simvastatin 20 mg tablet 20 mg PO HS insulin glargine 100 unit/mL (3 mL) subcutaneous pen (Basaglar KwikPen U-100 Insulin) 12 unit (0.12 mL) subcut QPM mecobalamin (vitamin B12) 1,000 mcg chewable tablet 1,000 mcg PO DAILY empagliflozin 25 mg tablet (Jardiance) 25 mg PO QAM metformin 500 mg tablet,extended release 24 hr 1,000 mg PO UD STOP 3 days before surgery empagliflozin 25 mg tablet (Jardiance) 25 mg PO QAM Continue as directed cyanocobalamin (vitamin B-12) 1,000 mcg/mL injection kit 1,000 mcg IM MONTHLY ASK your prescriber and surgeon aspirin 81 mg tablet,delayed release 81 mg PO DAILY STOP taking 2 weeks before surgery (or as soon as possible if surgery is within 2 weeks) omega-3 fatty acids 1,000 mg PO DAILY DO NOT take the morning of surgery cholecalciferol (vitamin D3) 125 mcg (5,000 unit) tablet (Vitamin D3) 5,000 unit PO DAILY PRN magnesium 100 mg tablet 200 mg PO DAILY mecobalamin (vitamin B12) 1,000 mcg chewable tablet 1,000 mcg PO DAILY metformin 500 mg tablet,extended release 24 hr 1,000 mg PO UD Take morning of surgery With a small sip of water, OTHERWISE NOTHING TO EAT OR DRINK AFTER MIDNIGHT: metoprolol succinate 25 mg tablet,extended release 24 hr 25 mg PO QAM Take evening before surgery latanoprost 0.005 % eye drops 1 drp ophthalmic (eye) QPM timolol 0.5 % eye drops 1 drp ophthalmic (eye) QPM lisinopril 10 mg tablet 10 mg PO QPM simvastatin 20 mg tablet 20 mg PO HS insulin glargine 100 unit/mL (3 mL) subcutaneous pen (Basaglar KwikPen U-100 I nsulin) 12 unit (0.12 mL) subcut QPM Other Notes If you have any questions please call us at [phone] or [phone] or [phone] or [phone]
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
[2024-07-15] MEDS: LR 60ML/HR IV SCH (07:53)
[~2024-07-15 08:11] MED LIST changes: -ACETAMINOPHEN 500 MG TAB PO SCH; +ALLERGY Noted to ORDERED Medication SCH; -BUPIVACAINE LIPOSOME/PF 266 MG, BUPIVACAINE/EPINEPHRINE 50 ML, SODIUM CHLORIDE 0.9% 30 ... INFIL SCH; -BUPIVACAINE/EPINEPHRINE 0.25% 1:200,000 30 ML VIAL ONE; -DEXAMETHASONE SOD INJ 4 MG/ML VIAL ONE; -FAMOTIDINE 20 MG TAB PO SCH; -GABAPENTIN 300 MG CAP PO SCH; -LR 500ML BOLUS, THEN 15ML/HR IV SCH; -LR 60ML/HR IV SCH; -METOCLOPRAMIDE HCL 10 MG TABLET PO SCH; -SCOPOLAMINE 1.5 MG TDSY TD SCH; -TRANEXAMIC ACID 1,000 MG **IV Intra-op IV SCH; -VANCOMYCIN HCL 1,500 MG in SODIUM CHLORIDE 0.9% 500 ML IV SCH; +ceFAZolin 2000MG 2,000 MG/15 ML SYR IV SCH
--- NOTE | 2024-07-15 08:35 | History & Physical Bridge Note ---
Date of Service July 15, 2024 History & Physical Bridge Note I have examined the patient, reviewed the History & Physical and in the interval since the performance of the History & Physical I have noted the following changes of clinical significance: no changes noted
[2024-07-15] MEDS ORDERED: Nursing to Pharmacy Communication SCH ×2 (08:45→09:30)
[2024-07-15] MEDS: LR 15ML/HR IV SCH (09:12)
[2024-07-15] MEDS: ACETAMINOPHEN 500 MG TAB PO SCH ×2 (09:15→14:48)
[2024-07-15] MEDS: FAMOTIDINE 20 MG TAB PO SCH (09:15)
[2024-07-15] MEDS: GABAPENTIN 300 MG CAP PO SCH (09:15)
[2024-07-15] MEDS: dexAMETHasone**PF** 10 MG/ML VIAL IV SCH (09:15)
[2024-07-15] MEDS ORDERED: MIDAZOLAM HCL 1 MG/ML 2ML VIAL ONE (09:16)
[2024-07-15] MEDS ORDERED: fentaNYL citrate PF 100 MCG/2 ML VIAL ONE (09:40)
[2024-07-15] MEDS ORDERED: GLYCOPYRROLATE 0.2 MG/ML VIAL ONE (09:41)
[2024-07-15] MEDS ORDERED: ONDANSETRON INJ 2 MG/ML 2 ML VIAL ONE (09:41)
[2024-07-15] MEDS ORDERED: PROPOFOL IV EMULSION 10 MG/ML 20 ML VIAL IV ONE (09:41)
[2024-07-15] MEDS ORDERED: LIDOCAINE 2% 2 ML VIAL/AMP(20MG/ML) INFIL ONE (09:41)
[2024-07-15] MEDS ORDERED: KETAMINE HCL 10MG/ML SYR ONE (09:42)
[2024-07-15] MEDS: TRANEXAMIC ACID 1,000 MG **IV Pre-op IV SCH (10:32)
[2024-07-15] MEDS ORDERED: ePHEDrine sulfate 50 MG/ML AMP IV PRN (10:43)
[2024-07-15] MEDS ORDERED: fentaNYL citrate PF 100 MCG/2 ML VIAL IV PRN (10:43)
[2024-07-15] MEDS ORDERED: ONDANSETRON INJ 2 MG/ML 2 ML VIAL IV PRN ×2 (10:43→13:42)
[2024-07-15] MEDS ORDERED: ATROPINE SULFATE 0.1 MG/ML 10ML SYR IV PRN (10:43)
[2024-07-15] MEDS: ceFAZolin 2000MG 2,000 MG/15 ML SYR IV SCH (10:50)
[2024-07-15] MEDS: ORTHO JOINT ANESTHETIC ONE (11:23)
[2024-07-15] MEDS ORDERED: ePHEDrine sulfate 50 MG/5 ML SYR ONE (11:36)
[2024-07-15] MEDS ORDERED: PHENYLEPHRINE 100MCG/ML 5ML SYR ONE (11:36)
[2024-07-15] MEDS: TRANEXAMIC ACID 1,000 MG **IV Intra-op IV SCH (11:45)
--- NOTE | 2024-07-15 11:48 | Operative Report ---
PG Post Operative Report Pre & Post Diagnosis Operation Date: 07/15/24 10:20 Pre-Op Diagnosis: Rotator cuff tear arthropathy of right shoulder Post-Op Diagnosis: Rotator cuff tear arthropathy of right shoulder I identified the patient and participated in the time-out.: Yes Procedure Operation Date: 07/15/24 10:20 Actual Procedures p Right Reverse Total Shoulder Arthroplasty(Right) - Justin Lazcano DO Surgeon Justin Lazcano DO Directory Carrier Gonzalo Camarillo PA-C Estimated Blood Loss 200 Findings Consistent with Post-Op Diagnosis Specimens Right humeral head Description of Procedure Implants used: I used a Biomet Comprehensive reverse total shoulder arthroplasty system with a size 14 press fit micro humeral stem, a +6 offset humeral tray and a standard humeral bearing, a 25 mm small augment baseplate with a 6.5 mm central screw and superior and inferior locking screws, and a size 40 mm eccentric glenosphere. Khris blanca arrived at [facility] for the above procedure. He was seen in the preoperative holding area and the operative extremity was identified and signed. He was given a preoperative antibiotic, TXA, and an interscalene nerve block. He was taken back to the operating room, laid on table in supine position, and put under general anesthesia. He was then put into the beachchair position. The shoulder was then prepped and draped in sterile fashion. A timeout was done and the patient and the operative extremity was properly identified. A deltopectoral approach was used. Dissection was taken down through the fascia and the deltoid was retracted laterally and the conjoined tendon was retracted medially. The anterior shoulder was exposed. The biceps tendon was previously tenodesed. The subscapularis was then directly released off the lesser tuberosity with a peel technique. The inferior capsule was released and the humeral head was dislocated. A canal finding reamer was sent down the center of the humeral canal. Sequential reaming up to a size 14 mm reamer was done. Off that reamer, a proximal humeral resection guide was placed. The proximal humerus was resected at 135 of inclination and 25 of retroversion. Osteophytes were then removed and the glenoid was exposed. Time was spent doing a complete capsular and labral release. The glenoid guide was then placed in the inferior aspect of the glenoid. A 3.2 mm Steinmann pin was then placed into the glenoid vault at 10 of inclination. The glenoid baseplate was then reamed. The final size 25 mm small augment baseplate was then impacted in the place. A 6.5 mm central screw was then placed followed by superior and inferior locking screws. A 40 mm eccentric glenosphere was then impacted into place. Surrounding soft tissues were then injected with 100 cc an orthopedic pain control cocktail. The proximal humerus was then exposed. Sequential broaching of the humerus up to a size 14 broach was done. Off that broach a +6 offset humeral tray was trialed. The shoulder was then reduced, brought through a full range of motion, and felt to be stable. The shoulder was then dislocated and the broach was removed. The final size 14 micro press-fit humeral stem was then impacted into place. A standard humeral bearing was then snapped onto a +6 offset humeral tray. The humeral tray was then impacted onto the humeral stem. The shoulder was once again reduced, brought through a full range of motion, and felt to be stable. The subscapularis was poor quality and unable to be repaired. A dilute betadyne lavage was then done for 3 minutes. The joint was then irrigated with normal saline solution. Hemostasis was obtained. The interval was closed with 2-0 Vicryl suture. The skin was then closed with 2-0 Vicryl and rafael. A Silverlon dressing was placed and the arm was rested in a regular arm sling. He was then extubated and transferred to a hospital bed. He taken to the postanesthesia care unit in stable condition. He tolerated the procedure well. Gonzalo Camarillo PA-C, was present for the entire procedure. He was critical for patient positioning, prepping, draping, retraction exposure, wound closure and application of sterile dressing. I attest to the content of the Intraoperative Record and any orders documented therein. Any exceptions are noted below.
[2024-07-15] MEDS: ROPIV 0.5% 246mg, Ketorolac 30mg, EPINEPHrine 0.5mg in NSS INFIL SCH (11:50)
--- NOTE | 2024-07-15 12:45 | XRay Report ---
XR shoulder RT min 2V routine CLINICAL HISTORY: Post shoulder surgery COMPARISON: MRI of the right shoulder May 06, 2024. Right shoulder radiographs May 03, 2023. FINDINGS: Alignment of the reverse total right shoulder arthroplasty is anatomic. There is no peripr osthetic fracture or unexpected radiopaque foreign body. There are skin rafael. IMPRESSION: Expected findings following reverse total right shoulder arthroplasty. ACT 112: Negative or not required by law. Electronically signed by: Raji Kinsey M.D. 07/15/2024 12:43 PM
--- NOTE | 2024-07-15 13:13 | Anesthesiology Progress Note ---
Date of Service July 15, 2024 Anesthesia Post Procedure Vital Signs Vital Signs: Temp Pulse Resp BP Pulse Ox O2 Del Method O2 Flow Rate 07/15/24 13:05 59 L 15 154/77 H 95 Room Air 07/15/24 12:55 36.4 C L 59 L 14 157/73 H 95 Room Air 07/15/24 12:45 58 L 20 158/79 H 94 Room Air 07/15/24 12:35 56 L 18 147/88 H 99 Oxymask 5 07/15/24 12:25 64 18 150/90 H 99 Oxymask 5 07/15/24 12:15 57 L 17 121/77 99 Oxymask 5 07/15/24 12:06 36.3 C L 58 L 16 146/74 H 99 Oxymask 5 07/15/24 08:45 36.4 C L 49 L 18 132/76 98 Room Air Transfer of Care Handoff Completed per policy Notes Mental Status: alert / awake / arousable and participated in evaluation Patient Amnestic to Procedure: Yes Nausea / Vomiting: adequately controlled Pain: adequately controlled Airway Patency, RR, SpO2: stable & adequate BP & HR: stable & adequate Hydration State: stable & adequate Anesthetic Complications: no major complications apparent and Pt Satisfied with anesthetic care
[2024-07-15] MEDS ORDERED: PHARMACY GLYCEMIC MGMT CONSULT PRN (13:42)
[2024-07-15] MEDS ORDERED: metFORMIN HCL ER 500 MG TABCR PO SCH (13:42)
[2024-07-15] MEDS ORDERED: bisacodyL 10 MG SUPP PR PRN (13:42)
[2024-07-15] MEDS ORDERED: HYDROmorphone INJ 0.5 MG/0.5 ML SYR IV PRN (13:42)
[2024-07-15] MEDS ORDERED: MAGNESIUM HYDROXIDE SUSP 30 ML UDC PO PRN (13:42)
[2024-07-15] MEDS ORDERED: oxyCODONE HCL IR 5 MG TAB (IMMEDIATE RELEASE) PO PRN (13:42)
[2024-07-15] MEDS ORDERED: NALOXONE HCL 0.4 MG/1 ML VIAL/CARP IV PRN (13:42)
[2024-07-15] MEDS ORDERED: METOCLOPRAMIDE HCL INJ 5 MG/ML 2 ML VIAL IV PRN (13:42)
--- NOTE | 2024-07-15 14:21 | Pharmacy Report ---
Pharmacy Glycemic Short Note 2 - Date of Service July 15, 2024 - Glycemic Short BSG Results (Last 24 hours): 07/15/24 07/15/24 08:49 12:07 POC Glucose 101 H 127 H OUTPATIENT ANTIDIABETIC REGIMEN: * Basaglar 12 units SC daily * Metformin 1000 mg PO w/ breakfast, 500 mg w/ lunch, 500 mg w/ dinner * Jardiance 25 mg PO daily HbA1c: 6.8% (06/17/24) ASSESSMENT: * WB is a 69 year old male POD #0 s/p right reverse total shoulder arthroplasty * Received 10 mg IV dexamethasone in OR, no ongoing steroids ordered * Preop blood sugar of 101 mg/dL and postop blood sugar of 127 mg/dL * Will be somewhat conservative with basal insulin in light of available blood sugars, but maintain slightly more aggressive Novolog parameters to cover steroid PLAN FOR INPATIENT GLYCEMIC CONTROL: * Hold outpatient oral diabetes medications * Basal insulin * Lantus 10 units SC x 1 postoperatively * Reassess in AM * Bolus insulin * NovoLog per scale ACHS or Q6hrs while NPO * Goal Range: Low 110 mg/dL - High 140 mg/dL * Correction Factor: 20 mg/dL/unit * Nutritional / Prandial insulin per carb ratio of 1 unit per 7 grams CHO consumed
[2024-07-15] MEDS: BUPIVACAINE LIPOSOME 1.3% 133 MG/10 ML VIAL ONE (14:29)
[2024-07-15] MEDS ORDERED: CARBOHYDRATES FOR HYPOGLYCEMIA PO PRN (14:30)
[2024-07-15] MEDS ORDERED: GLUCOSE 40% GEL 15 GM TUBE PO PRN (14:30)
[2024-07-15] MEDS ORDERED: GLUCAGON FOR INJ 1 MG VIAL SQ PRN (14:30)
[2024-07-15] MEDS ORDERED: DEXTROSE 50% 50 ML SYRINGE IV PRN (14:30)
[2024-07-15] MEDS ORDERED: GLUCOSE 10 TAB/TUBE PO PRN (14:30)
[2024-07-15] MEDS: KETOROLAC TROMETHAMINE 15 MG/ML VIAL IV SCH (14:49)
[2024-07-15] MEDS: INSULIN ASPART PER UNIT CHARGE SC SCH (14:59)
[2024-07-15] MEDS: LANTUS PER UNIT CHARGE SC ONE (15:00)
[2024-07-15] MEDS: ceFAZolin 1000MG 1,000 MG/7.5 ML SYR IV SCH (19:46)
[2024-07-15] MEDS ORDERED: NON-FORMULARY MEDICATION (Insulin Glargine [Basaglar Kwikpen U-100 Insulin] 100 unit/mL (3 SQ SCH (21:00)
[2024-07-15] MEDS: TIMOLOL MALEATE 0.5% OP SOLN 5 ML BTL OP SCH (21:20)
[2024-07-15] MEDS: SENNA 8.6 MG TAB PO SCH (21:21)
[2024-07-15] MEDS: DOCUSATE SODIUM 100 MG CAP PO SCH (21:21)
[2024-07-15] MEDS: lisinopril 10 MG TAB PO SCH (21:27)
[2024-07-15] MEDS: LATANOPROST 0.005% OP SOLN 2.5 ML BTL OP SCH (21:27)
[2024-07-15] MEDS: SIMVASTATIN 20 MG TAB PO SCH (21:27)
[2024-07-16 07:58] VITALS: BP 120/72; RESP 16; TEMP 97.5; O2SAT 98
[2024-07-16] MEDS: ASPIRIN 81 MG ECTAB PO SCH (08:10)
[2024-07-16] MEDS: MULTIVITAMIN TAB PO SCH (08:10)
[2024-07-16] MEDS: METOPROLOL SUCC 25MG EXT REL TAB PO SCH (08:10)
[2024-07-16] MEDS ORDERED: EMPAGLIFLOZIN 25 MG TAB PO SCH (09:00)
--- NOTE | 2024-07-16 10:13 | Orthopedic Progress Note ---
Date of Service July 16, 2024 Assessment & Plan (1) Status post reverse arthroplasty of right shoulder: Assessment: Status post right reverse total shoulder arthroplasty. Plan: Overall, he is doing quite well today with good pain control the right shoulder. He will work with physical therapy later this morning to work on range of motion exercises. He can be discharged home after physical therapy evaluation and recommendations. His dressing should remain in place for 7 days. He may be open to air after 7 days if no drainage is present. He should remain in the sling until follow-up. He will follow-up with orthopedics in 2 weeks for continued postoperative management or sooner if needed. He verbalized understanding and agrees with this plan. Subjective . Khris was seen and evaluated this morning resting comfortably no apparent distress. He denies any concerns with surgical incision site. He denies any active bleeding, discharge, or signs infection. He is wearing his sling as directed. He has been up and ambulated without any significant issues. He has yet to work with physical therapy this morning. He denies any other concerns today. Review of Systems All systems reviewed & are unremarkable except as noted in HPI & below. Physical Exam . On physical examination of the right shoulder, dressing clean, dry, and intact. He is wearing his sling as directed. He has active range of motion of the elbow, wrist, and all 5 digits. +2 radial pulse. Less than 2-second capillary refill. Normal sensation. Neurovascular intact. Results & Data Results & Data Laboratory Results . Diagnostic Findings . Shoulder X-Ray 07/15/24 12:11 XR shoulder RT min 2V routine CLINICAL HISTORY: Post shoulder surgery COMPARISON: MRI of the right shoulder May 06, 2024. Right shoulder radiographs May 03, 2023. FINDINGS: Alignment of the reverse total right shoulder arthroplasty is anatomic. There is no periprosthetic fracture or unexpected radiopaque foreign body. There are skin rafael. IMPRESSION: Expected findings following reverse total right shoulder arthroplasty. ACT 112: Negative or not required by law. Electronically signed by: Raji Kinsey M.D. 07/15/2024 12:43 PM PG Care Time/CCT Total # of Minutes Spent Total Time Spent with Patient: Total time spent is greater than 50% in coordination of care (as documented) at patient's floor/unit and/or counseling patient: Coding Level of Care Code 43748 Post Operative Follow-Up Diagnoses Status post reverse arthroplasty of right shoulder Z96.612
--- NOTE | 2024-07-16 10:15 | Discharge Summary ---
Date of Service July 16, 2024 Admission HPI (Per Admitting) Khris is a pleasant 69-year-old male who underwent a large right rotator cuff repair about 5 months ago. Unfortunately, he has not done well postoperatively. He is still unable to initiate forward elevation. He has a lot of weakness in the shoulder. Clinical exam is diagnostic for a massive rerupture of his rotator cuff. After failing conservative treatment, he is elected proceed with a right reverse shoulder replacement. Admission Exam (Per Admitting) On physical exam of the right shoulder, he has only about 40 degrees forward elevation 40 degrees of abduction. He has weakness throughout.. Principal Diagnosis Same as "Discharge Diagnosis" noted below under Discharge Instructions. Discharge Exam . On physical examination of the right shoulder, dressing clean, dry, and intact. He is wearing his sling as directed. He has active range of motion of the elbow, wrist, and all 5 digits. +2 radial pulse. Less than 2-second capillary refill. Normal sensation. Neurovascular intact. Discharge Data Procedures Performed Operation Date: 07/15/24 10:20 Actual Procedures p Right Reverse Total Shoulder Arthroplasty(Right) - Justin Lazcano DO Ordered Studies 07/15/24 05:00 US - OR guided needle placemen Routine Hospital Course (1) Status post reverse arthroplasty of right shoulder: On July 15, 2024 Khris arrived at [facility] and underwent a right reverse total shoulder arthroplasty performed by Dr. Lazcano with no comp lications. He had a general anesthetic. Postoperatively, he was transferred to the PACU for immediate postoperative management and then transferred to the general orthopedic floor in stable condition. His hospital course was uneventful. On postoperative day #1, his vital signs were stable and his pain was well-controlled. He participated well with physical therapy working on range of motion exercises. He was then discharged home in stable condition. He will follow-up with orthopedics in 2 weeks for continued postoperative management or sooner if needed. PG Care Time/CCT Total # of Minutes Spent Total Time Spent with Patient: Total time spent is greater than 50% in coordination of care (as documented) at patient's floor/unit and/or counseling patient: Discharge Plan Discharge Items Patient Disposition: Home - Home Health Services Reason For Visit: Arthritis Shoulder Right Discharge Diagnosis: Same Activity: Per Instructions section Non-emergency contact: Surgeon Call non-emergency contact if: your temperature is above 101.5, your wound has increased redness, your wound has increased drainage and your wound pain has increased Follow-up/Referrals: Armand Parrish [Primary Care Provider] - Diet: Regular Addtl Attending Provider Instructions: Activity and Therapy Recommendations: * If you are using [facility] then therapy will be provided at your home until they feel you have accomplished all of your goals. * If you are using [facility] then Physical Therapy will be provided until they feel you are ready to start Outpatient Physical Therapy. * If you are not using home therapy then Outpatient Physical Therapy should start about 3-5 days from your day of surgery. Therapy will last about 8-12 weeks * Wear your sling for 3 weeks, unless otherwise instructed. You may remove your sling to shower and to dress, but otherwise, you should be in your sling at all times, including while sleeping * The shoulder replacement is very stable and you can use your hand while in the sling * You were shown a series of exercises in the hospital. Do these exercises daily including the exercises you were shown in physical therapy. Medications: * Narcotic You will likely be sent home from the hospital with a prescription for the narcotic pain medication that worked best throughout your stay. * Cefadroxil -take the antibiotic twice a day for 10 days to help prevent infection. * Other medications may be prescribed for specific circumstances. If you have any questions, please call the office at . * Resume previous home medications unless otherwise instructed Dressing Care: Leave the Silverlon dressing in place for 7 days. After 7 days you may remove the dressing. If the incision is not draining then you may leave the rafael open to air. If there is a little bit of drainage or if the rafael are getting stuck on your clothing then cover the incision with a dry dressing. The rafael will be removed at your 2 week follow-up appointment. Showering: You may shower with the Silverlon dressing in place. Do not let the shower spray hit the dressing directly. Pat the Silverlon dressing dry. If the dressing becomes wet underneath, then simply remove the dressing. Keep the incision dry until you are 7 days out from the day of surgery. After 7 days you may remove the Silverlon dressing and shower with the rafael exposed. Let soapy water run over the rafael and pat them dry. Do not scrub or soak the incision. Diet: You may resume your previous diet. Things To Watch For: * Drainage from the incision site that occurs more than one week after your surgery. * Increased redness at the incision site. * Fever above 102 degrees Fahrenheit. * Unusual chest pain or shortness of breath. * Call [facility] at with any of the above problems Follow-Up Visit: Follow-up with Dr. Lazcano's office 2-3 weeks after your day of surgery. We will remove your rafael and answer any questions. If you have any additional questions or concerns, Dr Lazcano is usually in the office at the same time and will be available An appointment was probably scheduled when you signed-up for surgery in the office. If you have any questions call More detailed instructions as well as Frequently Asked Questions were provided in a folder by our office when you signed-up for surgery. Please review these instructions when you get home. If you have any further questions or concerns, please feel free to call the office at [phone] Pending Studies at Discharge: No Stand-Alone Forms: My [facility] [email or web address] Medications and DC Order Prescriptions: New cefadroxil 500 mg capsule 500 mg PO BID 10 Days Qty: 20 0RF oxycodone 5 mg tablet 5 mg PO Q6H PRN (Reason: pain) Qty: 30 0RF Continued insulin glargine [Basaglar KwikPen U-100 Insulin] 100 unit/mL (3 mL) insulin pen 12 unit subcut QPM 90 Days Qty: 15 3RF (DME) pen needle, diabetic [Sure-Fine Pen [place]] 31 gauge x 5/16" needle See Rx Instructions .Route Qty: 100 3RF Rx Instructions: Use one per day Jardiance 25 mg tablet 25 mg PO QAM Qty: 90 1RF metoprolol succinate 25 mg tablet extended release 24 hr 25 mg PO QAM Qty: 90 3RF (DME) OneTouch Verio test strips Strip See Rx Instructions .ROUTE .MEDSUPPLY Qty: 10 Rx Instructions: test 1 time daily aspirin 81 mg tablet,delayed release (DR/EC) 81 mg PO DAILY Qty: 30 2RF (DME) FreeStyle Delia 3 Sensor Device See Rx Instructions .Route Rx Instructions: As directed timolol 0.5 % drops 1 drp ophthalmic (eye) QPM Patient Comments: both eyes latanoprost 0.005 % drops 1 drp ophthalmic (eye) QPM Patient Comments: both eyes lisinopril 10 mg tablet 10 mg PO QPM Qty: 90 3RF simvastatin 20 mg tablet 20 mg PO HS Qty: 90 3RF mecobalamin (vitamin B12) 1,000 mcg tablet,chewable 1,000 mcg PO DAILY cyanocobalamin (vitamin B-12) 1,000 mcg/mL kit 1,000 mcg IM MONTHLY Rx Instructions: DONE AT MD OFFICE cholecalciferol (vitamin D3) [Vitamin D3] 5,000 unit tablet 5,000 unit PO DAILY PRN (Reason: as needed) omega-3 fatty acids Capsule 1,000 mg PO DAILY magnesium 100 mg Tablet 200 mg PO DAILY metformin 500 mg tablet extended release 24 hr 1,000 mg PO UD Rx Instructions: 1000 mg qam, 500mg lunch, 500mg dinner Admission Data Admit Date/Time: 07/15/24 12:11 Attending Provider: Justin Lazcano Admit Provider: Justin Lazcano Primary Care Provider: Armand Parrish
[2024-07-16 10:23] VITALS: PULSE 61
== END 2024-07-16 11:50 | disposition home health service (06) ==
LOC: 3E 08:11 → ASU 08:11
DX: Z79.84 Long term (current) use of oral hypoglycemic drugs; Z88.0 Allergy status to penicillin; M75.101 Unspecified rotator cuff tear or rupture of right shoulder, not specified as traumatic; I10 Essential (primary) hypertension; I25.10 Atherosclerotic heart disease of native coronary artery without angina pectoris; Z86.73 Personal history of transient ischemic attack (TIA), and cerebral infarction without residual deficits; Z79.82 Long term (current) use of aspirin; E11.9 Type 2 diabetes mellitus without complications; M12.811 Other specific arthropathies, not elsewhere classified, right shoulder; E78.5 Hyperlipidemia, unspecified; Z79.899 Other long term (current) drug therapy

== ENCOUNTER 2024-11-18 14:03 | Inpatient (IN) ==
[2024-11-18] MEDS: SODIUM CHLORIDE 0.9% 500 ML IV ONE (15:10)
[2024-11-18] MEDS: ONDANSETRON INJ 2 MG/ML 2 ML VIAL IV STA (15:11)
[2024-11-18 15:15] LABS: Hematocrit (blood only) 50.5 % (42.0-52.0); Hemoglobin 15.4 g/dl (14.0-18.0); Mean Corpuscular Hgb Conc 30.5 g/dL (32.0-36.0); Mean Corpuscular Volume 81.8 fL (80.0-100.0); Platelet Count 234 K/uL (130-400); RDW Standard Deviation 45.9 fL (36.4-46.3); Red Blood Count 6.17 M/uL (4.70-6.10); White Blood Count 7.48 K/ul (4.8-10.8)
[2024-11-18 15:40] LABS: Albumin Level 4.7 gm/dl (3.4-5.0); Bilirubin,Total 1.7 mg/dl (0.2-1.0); Calcium 10.1 mg/dl (8.6-10.3); Potassium 5.1 mmol/L (3.5-5.1)
[2024-11-18 15:45] LABS: Basophils # (auto) 0.04 K/uL (0.00-0.20); Basophils % (auto) 0.5 %; Eosinophils # (auto) 0.03 K/uL (0.00-0.50); Eosinophils % (auto) 0.4 %; Immature Granulocytes # (auto) 0.02 K/uL (0.01-0.20); Immature Granulocytes % (auto) 0.3 %; Lymphocytes # (auto) 0.46 K/uL (1.20-3.40); Lymphocytes % (auto) 6.1 %; Monocytes # (auto) 1.38 K/uL (0.11-0.59); Monocytes % (auto) 18.4 %; Neutrophils # (auto) 5.55 K/uL (1.40-6.50); Neutrophils % (auto) 74.3 %
[2024-11-18 15:46] LABS: Albumin Globulin Ratio 1.4 (0.9-2); Creatinine Clr Calc Pharmacy 55.2 ml/min; Globulin 3.4 gm/dl (2.5-4.0); Total Protein 8.1 gm/dl (6.0-8.3)
[2024-11-18 15:47] LABS: Troponin I High Sensitivity 4.8 pg/ml (0-20)
[2024-11-18 15:50] LABS: Appearance Urine Clear (Clear); Bilirubin Urine Negative (Negative); Blood Urine Negative (Negative); Color Urine Yellow; Glucose Urine UA 3+ (Negative); Ketones Urine 1+ (Negative); Leukocyte Esterase Urine Negative (Negative); Nitrite Urine Negative (Negative); Protein Urine Negative (Negative); Specific Gravity Urine 1.044 (1.000-1.030); Urobilinogen Urine Negative (Negative)
[2024-11-18] MEDS: OPTIRAY 320 100ml IV ONE (16:06)
--- NOTE | 2024-11-18 16:28 | CT Scan Report ---
Clinical History: Nausea and vomiting Technique: Axial computed tomography images were obtained of the abdomen and pelvis after the administration of intravenous contrast. No prior CT is available for comparison. Findings: The liver is overall of normal size, attenuation, and contour with no sign of cirrhosis or significant fatty infiltration. No liver mass lesion is seen. The portal vein is patent. The gallbladder has been removed. No bile duct dilatation is noted. The spleen is of normal size. No focal splenic lesion is evident. There are 2 apparent cysts in the proximal pancreatic body, measuring 1.2 cm and 1 cm. There is an apparent 7 mm cyst in the pancreatic head. The pancreas otherwise appears normal with no sign of acute or chronic pancreatitis and no mass lesion noted. The pancreatic duct is of normal caliber. There is a 1.5 cm left adrenal nodule. The right adrenal gland appears normal No definite renal or proximal ureteral calculi are seen on this contrast-enhanced study. There is no hydronephrosis or perinephric stranding. No renal mass lesion is identified. There are bilateral renal cortical and peripelvic cysts, measuring up to 1.7 cm. The aorta is of normal caliber. No abdominal adenopathy is seen. There are multiple rim calcified areas with central fat attenuation within the anterior peritoneal cavity, which may represent old omental infarcts/chronic fat necrosis There is prominence of the wall of the gastric antrum. There is apparent small bowel obstruction at the level of the distal ileum postsurgical changes are seen of near total colectomy with ileocolic anastomosis. No free intraperitoneal air is identified. There is a small amount of ascites No distal ureteral or bladder calculi are seen. No bladder mass lesion is evident. The iliac arteries are of normal caliber. No pelvic adenopathy is noted. The prostate is mildly enlarged. The lungs bases appear clear. There is extensive coronary atherosclerosis Lumbar scoliosis and degenerative disc disease is seen. There is grade 2 anterolisthesis at L5-S1 due to L5 pars defects. There are mild T11 and T12 compression fractures, likely old. No focal osseous lesion is seen Impression: 1. High-grade small bowel obstruction at the level of the distal ileum 2. Small amount of ascites 3. Left adrenal nodule that may represent a benign adenoma but is indeterminate in nature. A follow-up dedicated adrenal protocol abdominal CT or MRI could be considered 4. Multiple bilateral renal cysts 5. Mildly enlarged prostate. Correlation with PSA levels may be useful 6. Mild T11 and T12 compression fractures, likely old 7. Extensive coronary atherosclerosis 8. Several pancreatic cysts, likely benign congenital or post inflammatory cysts. This could also be further evaluated by the above recommended follow-up study 9. Apparent wall thickening of the gastric antrum, raising the possibility of gastritis. Gastric neoplasm cannot be excluded ACT 112: Positive. There are findings on this exam that require communication between the performing entity and the patient following Patient Test Result Information Act ([place] ACT 112) guidelines. Electronically signed by Blake Peraza 11-18-2024 4:27 PM
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
--- NOTE | 2024-11-18 17:38 | History & Physical Report ---
Date of Service November 18, 2024 Assessment & Plan (1) SBO (small bowel obstruction): Plan: 69-year-old male with a history of colectomy and J-pouch due to UC and no prior SBO who presents with a high-grade SBO not appearing to involve the J-pouch High-grade SBO CTA/P: High-grade bowel obstruction at the distal ileum. Indeterminate adrenal nodule pending dedicated MRI pending. Additionally gastric antrum thickening suspicious for gastritis but from which neoplasm is not excluded. Case was reviewed between ER and Dr. Orellnaa, general surgery. Obstruction does not appear to involve the J-pouch. Agree with admission and medical management at this time Strict n.p.o. If any recurrent nausea/vomiting Place NGT to [facility] General Surgery consulted, following LR 120/h At risk of adhesional disease due to prior colectomy due to UC and past cholecystectomy Mild hyperbilirubinemia without transaminitis, s/p past cholecystectomy Gastric inflammation ? Gastritis on CT, malignant process is not excluded Patient has not had an EGD in over 2 years. Previously followed with [facility] consulted N.p.o. Type II DM Home antiglycemic's held Goal BSG [id number] Lantus home dose 12 units reduced to 7 units while NPO CF 50 Glucose checks every 6 hours CAD, hypertension, hyperlipidemia Patient with history of CAD with WILLIS to LAD, WILLIS to PDA 2000, WILLSI to LAD and WILLIS to PDA 03/2012 Lisinopril held while n.p.o. Metoprolol 25 mg daily converted to IV 2.5 mg tartrate every 6 hours to prevent beta-eri withdrawal If prolonged n.p.o. convert aspirin to MS for stent protection, and also with history of CVA S/p total colectomy and J-pouch Due to ulcerative colitis and concern for malignancy. Colon biopsies did not have evidence of malignancy however due to recurrent UC and persistent concern for risk of this ultimately was recommended for colectomy. No complications since no prior SBO Resting tremor Patient is on carbidopa/levodopa at home with improvement in his tremor unclear if Parkinson's Held while n.p.o. DVT prophylaxis: SCDs Diet: NPO (2) CVA (cerebral vascular accident): (3) CAD (coronary artery disease): (4) HTN (hypertension) with goal to be determined: (5) Type 2 diabetes mellitus: History of Present Illness Primary Care Provider: Armand Pinedo is seen for a bowel obstruction. He felt OK until yesterday afternoon. Starting having pain in his lower abdomen bilaterally. No fevers. Gets chills intermittently normally, no change Last BM was Monday night (~2 days ago). Not passing any gas since night prior NO prior history of SBO Has a hisory of total colectomy and J pouch, no complications from these. No formed BM in 20 years as a result of this, generally thin and loose. Had a history of ulcerative colitis and had q2y colonoscopies and had a developing mass concerning for cancer. Was recommended total colectomy --> path did not show cancer but due to 11 years of UC and concern for suboptimal bx. Also w/ history of cholecystectomy ~2000 No recent chest pain or chest pressure. Fairly active, can shovel and go up stairs with no chest pressure or dyspnea. No jaw or arm pain. History of a CVA. Residual LEFT arm and hand impaired coordination and some reduced sensation. Strength improved since a shoulder replacement, but is a little worse qualitatively. Follows with [facility]. Hasn't been seen in two years. Had been getting sigmoid scopes prior and intermittent EGDs although has not had 1 of these recently Medical History: Reviewed Medications: Reviewed Surgical History: Reviewed Family history: Reviewed Allergies: Reviewed Social History: Chew tobacco, one tin every few days. Alochol intermittently, not daily Code Status: DNR/DNI Allergies Allergy/AdvReac Type Severity Reaction Status Date / Time oxytetracycline Allergy Severe Throat Verified 09/11/24 11:57 [From Terramycin] swelling Penicillins Allergy Severe Throat Verified 09/11/24 11:57 swelling (as child) streptomycin Allergy Severe Throat Verified 09/11/24 11:57 swelling (as child) Home Medications Medication Instructions Recorded Confirmed Type cholecalciferol (vitamin D3) 125 5,000 unit PO DAILY PRN as needed 01/22/19 09/11/24 History mcg (5,000 unit) tablet (Vitamin D3) cyanocobalamin (vitamin B-12) 1,000 mcg IM MONTHLY 01/22/19 09/11/24 History 1,000 mcg/mL injection kit blood sugar diagnostic (OneTouch #10 ea 06/06/19 09/11/24 History Verio test strips) aspirin 81 mg tablet,delayed 81 mg PO DAILY #30 tabs 08/12/20 09/11/24 Rx release latanoprost 0.005 % eye drops 1 drp ophthalmic (eye) QPM 12/20/21 09/11/24 History timolol 0.5 % eye drops 1 drp ophthalmic (eye) QPM 12/20/21 09/11/24 History blood-glucose sensor (FreeStyle 09/19/23 09/11/24 History Delia 3 Sensor device) omega-3 fatty acids 1,000 mg PO DAILY 11/29/23 09/11/24 History magnesium 100 mg tablet 200 mg PO DAILY 12/05/23 09/11/24 History insulin glargine 100 unit/mL (3 12 unit (0.12 mL) subcut QPM 90 03/04/24 09/11/24 Rx mL) subcutaneous pen (agl days #15 mL KwikPen U-100 Insulin) mecobalamin (vitamin B12) 1,000 1,000 mcg PO DAILY 04/02/24 09/11/24 History mcg chewable tablet pen needle, diabetic 31 gauge x #100 ea 04/29/24 09/11/24 Rx /16" (Sure-Fine Pen [place]) empagliflozin 25 mg tablet 25 mg PO QAM #90 tabs 06/12/24 09/11/24 Rx (Jardiance) metformin 500 mg tablet,extended 1,000 mg PO UD 06/12/24 09/11/24 History release 24 hr metoprolol succinate 25 mg 25 mg PO QAM #90 tabs 06/18/24 09/11/24 Rx tablet,extended release 24 hr oxycodone 5 mg tablet 5 mg PO Q6H PRN pain #30 tabs 07/15/24 09/11/24 Rx lisinopril 10 mg tablet 10 mg PO QPM #90 tabs 08/05/24 09/11/24 Rx simvastatin 20 mg tablet 20 mg PO HS #90 tabs 10/31/24 Rx Past Med/Surg History Problem List (Updated 11/18/24 @ 18:09 by Medardo Clayton MD) SBO (small bowel obstruction) Status post reverse arthroplasty of right shoulder (~06/2024) CVA (cerebral vascular accident) Stented coronary artery 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 CAD (coronary artery disease) (Acute) HTN (hypertension) with goal to be determined (Acute) Hyperlipidemia (Acute) Obesity (BMI 30-39.9) (Acute) Type 2 diabetes mellitus (Acute) Hx of myocardial infarction 2000, s/p cardiac stents x 2 Medical History Rotator cuff tear arthropathy of right shoulder Encounter for pre-operative examination History of COVID-19 History of stroke (09/2021) History of hypothyroidism Hyperlipidemia HTN (hypertension) History of myocardial infarction (2000) History of kidney stones Hx of ulcerative colitis Hx of pancreatitis Hx of deep venous thrombosis (2011) CAD (coronary artery disease) Scoliosis Diabetes mellitus, type 2 Tremor Surgical History History of heart artery stent S/P right rotator cuff repair (11/2023) Hx of bilateral cataract extraction History of endoscopy H/O total knee replacement (2018) H/O exploratory laparotomy (2011) History of implanted electronic device History of open reduction and internal fixation (ORIF) procedure (1975) History of cystoscopy History of cholecystectomy History of colonoscopy History of bowel resection (2011) History of cardiac cath Family History Grandmother (Maternal) Diabetes Mother Dementia Social History Smoking Status: Never smoker Tobacco Type: Smokeless Tobacco (Dip or Chew) Second Hand Exposure: No; Do You Dip or Chew Tobacco: Yes (chews daily (advised)); Hx Alcohol Use: Yes Alcohol type: beer, wine and hard liquor Hx Substance Use: No Preferred Language: Spanish Communication Ability: Effective Life Insurance Salesperson Required: No Beliefs That Will Affect Care: None marital status: Current Living Situation: Spouse Current Living Situation Comment: ELDERLY FATHER CARED FOR BY SISTER DURING PT'S RECOVERY Feels Safe at Home: Yes Assistive Devices: None Physical Exam Physical Exam: General: A&Ox3. NAD. Cooperative. HEENT: Atraumatic, normocephalic. Vision and hearing grossly intact Pulm: CTAB A&P. -wheezes, -rales, -rhonchi. Symmetrical chest rise. No increased work of breathing. No respiratory distress. Cardiac: RRR, -mrg. Radial pulses intact and symmetrical. Abdominal: Nontender, soft. Bowel sounds absent. Extremities: Warm, dry. Systems Developer strength, elbow flexion/extension, shoulder flexion, hip flexion, ankle dorsiflexion/plantarflexion 5/5 bilaterally. Sensation soft touch intact in hands and feet without deficit/asymmetry Results & Data Results & Data Vital Signs (Past 12 Hours) Vital Signs Temp Pulse Pulse Resp BP BP Pulse Ox 11/18/24 15:36 78 16 95 11/18/24 15:36 78 16 115/73 95 11/18/24 15:28 77 11/18/24 14:23 36.9 C 98 H 16 119/88 95 O2 Del Method 11/18/24 15:36 Room Air 11/18/24 15:36 Room Air 11/18/24 15:28 11/18/24 14:23 Room Air PG Care Time/CCT Total # of Minutes Spent Total Time Spent with Patient: Total time spent is greater than 50% in coordination of care (as documented) at patient's floor/unit and/or counseling patient: Coding Level of Care Code 35293 INT INP/OBS CARE 3/75MIN Diagnoses SBO (small bowel obstruction) K56.609 Cerebrovascular accident (CVA), unspecified mechanism I63.9 CVA mechanism: unspecified Coronary artery disease involving [place] coronary artery of [place] heart without angina pectoris I25.10 Coronary Disease-Associated Artery/Lesion type: [place] artery [place] vs. transplanted heart: [place] heart Associated angina: without angina HTN (hypertension) with goal to be determined I10 Type 2 diabetes mellitus E11.9 (2) CVA (cerebral vascular accident) CVA mechanism: unspecified Qualified Code(s): I63.9 - Cerebral infarction, unspecified (3) CAD (coronary artery disease) Coronary Disease-Associated Artery/Lesion type: [place] artery [place] vs. transplanted heart: [place] heart Associated angina: without angina Qualified Code(s): I25.10 - Atherosclerotic heart disease of [place] coronary artery without angina pectoris
[2024-11-18] MEDS: LACTATED RINGER'S 1,000 ML IV SCH (18:50)
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
[2024-11-18] MEDS ORDERED: GLUCAGON FOR INJ 1 MG VIAL SQ PRN (21:20)
[2024-11-18] MEDS ORDERED: ACETAMINOPHEN 1,000 MG/100 ML VIAL IV PRN (21:20)
[2024-11-18] MEDS ORDERED: ONDANSETRON INJ 2 MG/ML 2 ML VIAL IV PRN (21:20)
[2024-11-18] MEDS ORDERED: DEXTROSE 50% 50 ML SYRINGE IV PRN (21:20)
[2024-11-18] MEDS ORDERED: Nursing to Pharmacy Communication SCH (22:45)
[2024-11-18] MEDS: INSULIN ASPART PER UNIT CHARGE SC SCH (23:07)
[2024-11-18] MEDS: LANTUS PER UNIT CHARGE SQ SCH (23:13)
[2024-11-18] MEDS: METOPROLOL TARTRATE 1 MG/ML VIAL IV SCH (23:14)
[2024-11-19 06:24] LABS: Hematocrit (blood only) 41.8 % (42.0-52.0); Hemoglobin 13.4 g/dl (14.0-18.0); Mean Corpuscular Hemoglobin 26.2 pg (25.0-34.0); Mean Corpuscular Hgb Conc 32.1 g/dL (32.0-36.0); Mean Corpuscular Volume 81.8 fL (80.0-100.0); Mean Platelet Volume 10.4 fL (9.4-12.4); Platelet Count 190 K/uL (130-400); RDW Coefficient of Variation 15.7 % (11.5-14.5); RDW Standard Deviation 46.2 fL (36.4-46.3); Red Blood Count 5.11 M/uL (4.70-6.10); White Blood Count 3.72 K/ul (4.8-10.8)
[2024-11-19 06:55] LABS: Basophils # (auto) 0.02 K/uL (0.00-0.20); Basophils % (auto) 0.5 %; Eosinophils # (auto) 0.12 K/uL (0.00-0.50); Eosinophils % (auto) 3.2 %; Immature Granulocytes # (auto) 0.01 K/uL (0.01-0.20); Immature Granulocytes % (auto) 0.3 %; Lymphocytes # (auto) 0.63 K/uL (1.20-3.40); Lymphocytes % (auto) 16.9 %; Monocytes # (auto) 1.02 K/uL (0.11-0.59); Monocytes % (auto) 27.4 %; Neutrophils # (auto) 1.92 K/uL (1.40-6.50); Neutrophils % (auto) 51.7 %
[2024-11-19 07:00] LABS: Albumin Level 3.9 gm/dl (3.4-5.0); Bilirubin,Total 1.2 mg/dl (0.2-1.0); Calcium 8.6 mg/dl (8.6-10.3); Potassium 4.2 mmol/L (3.5-5.1)
[2024-11-19 07:08] LABS: Albumin Globulin Ratio 1.6 (0.9-2); C Reactive Protein 8.13 mg/dl (0-0.5); Creatinine Clr Calc Pharmacy 60.5 ml/min; Globulin 2.4 gm/dl (2.5-4.0); Total Protein 6.3 gm/dl (6.0-8.3)
--- NOTE | 2024-11-19 08:00 | Hospitalist Progress Note ---
Date of Service November 19, 2024 Assessment & Plan (1) SBO (small bowel obstruction): (2) CVA (cerebral vascular accident): (3) CAD (coronary artery disease): (4) HTN (hypertension) with goal to be determined: (5) Type 2 diabetes mellitus: Plan 69-year-old male with a history of colectomy and J-pouch due to UC and no prior SBO who presents with a high-grade SBO not appearing to involve the J-pouch #High-grade SBO CTA/P: High-grade bowel obstruction at the distal ileum. Indeterminate adrenal nodule pending dedicated MRI pending. Additionally gastric antrum thickening suspicious for gastritis but from which neoplasm is not excluded. Case was reviewed between ER and Dr. Orellana, general surgery. Obstruction does not appear to involve the J-pouch. Agree with admission and medical management at this time KUB revealed stable small bowel obstruction on 11/19, will plan to advance to clears on the evening of 11/19 No recurrence of nausea and vomiting; NG tube deferred General Surgery consulted, following; conservative measures for now Continue LR 120/h -> 80/h (set to end on 11/20; add on additional fluids PRN) At risk of adhesional disease due to prior colectomy due to UC and past cholecystectomy Mild hyperbilirubinemia without transaminitis, s/p past cholecystectomy #Gastric inflammation ? Gastritis on CT, malignant process is not excluded Patient has not had an EGD in over 2 years. Previously followed with [facility] consulted N.p.o. #Mobitz type II Notified by telemetry on 11/19 that patient had a brief episode of Mobitz type II Hemodynamically stable at that time; VSS; HR 64bpm Clinically, patient is asymptomatic; no chest palpitations, lightheadedness, or dizziness ? Could be secondary to holding medications in the setting of SBO Transcutaneous pacer pads in place in the event that this develops to third- degree block Continuous telemetry monitoring for now #Type II DM Home antiglycemic's held Goal BSG [id number] Lantus home dose 12 units reduced to 7 units while NPO CF 50 Glucose checks every 6 hours while NPO #CAD, hypertension, hyperlipidemia Patient with history of CAD with WILLIS to LAD, WILLIS to PDA 2000, WILLIS to LAD and WILLIS to PDA 03/2012 Lisinopril held while n.p.o. Metoprolol 25 mg daily converted to IV 2.5 mg tartrate every 6 hours to prevent beta-eri withdrawal If prolonged n.p.o. convert aspirin to NV for stent protection, and also with history of CVA This was discussed on 11/[address] Desouza; given stents were placed >20y ago, can remain off aspirin NV for now #S/p total colectomy and J-pouch Due to ulcerative colitis and concern for malignancy. Colon biopsies did not have evidence of malignancy however due to recurrent UC and persistent concern for risk of this ultimately was recommended for colectomy. No complications since no prior SBO #Resting tremor Patient is on carbidopa/levodopa at home with improvement in his tremor unclear if Parkinson's Held while n.p.o. Disposition: Continued stay on MedSurg with telemetry DVT prophylaxis: SCDs Diet: NPO Admission and Anticipated Discharge Date Admission Date: November 18, 2024 Supervising Physician Co-Signing Physician Notes The patient was not seen by me. The chart was reviewed. Case discussed with KAREN Escoto. Agree with assessment and plan Subjective Mr. Aceves is resting peacefully in bed this afternoon. He denies any abdominal pain at this time. He does endorse abdominal discomfort, and says it feels like his stomach is "churning" intermittently. He describes it as an "old-fashioned belly ache". 1 episode of vomiting last night, but no episodes of nausea or vomiting today. He also had a small bowel movement earlier, then tried again this afternoon but was unable to go. He is now passing gas, and burping. Patient reports his last EGD was in 2000. Last colonoscopy was in 2019. He does have a history of NH in 2000 and has [address] No prior cardiac arrhythmias or heart block to his knowledge. He reports no episodes of lightheadedness or chest palpitations today; follows with Dr. Jean Baptiste for cardiology. ROS: Patient endorses stiffness from lying in bed all day, and abdominal discomfort. Patient denies fever, chills, night sweats, lightheadedness/dizziness, headache, chest pain, chest palpitations, SOB, pleuritic CP, cough, abdominal pain, N/V/D, burning with urination, or blood in the urine or stool. Review of Systems Review of Systems: See HPI above Physical Exam Physical Exam: General: no acute distress; lying in bed; non-toxic appearing; well-nourished; cooperative; SpO2 95% on RA HEENT: normocephalic, atraumatic; no scleral icterus; PERRLA; vision and hearing intact Neck: supple; trachea midline Skin: warm, dry without signs of tenting; no cyanosis; no rashes, bruising, lesions, or erythema noted CV: chest wall NTP; RRR; pulses intact and symmetric at radial, DP, and PT Lungs: no acute respiratory distress; symmetrical chest wall expansion; clear breath sounds across all lung jarquin w/o adventitious sounds; no wheezing ABD: Soft, NTP in all 4 quadrants; BS present; no rebound/guarding; no distention MSK: no tics or fasciculations; no edema noted in the LEs b/l, nonerythematous Neuro: A&Ox3; normal mood and affect; fluent speech; no focal deficits; sensation intact and symmetric in the lower extremities bilaterally Results & Data Results & Data Vital Signs (Past 12 Hours) Vital Signs Temp Pulse Pulse Resp BP BP Pulse Ox 11/19/24 07:22 74 11/19/24 06:08 68 114/69 11/19/24 05:53 68 122/65 11/19/24 02:42 37.1 C 75 20 113/67 94 11/18/24 23:29 68 107/68 11/18/24 22:59 70 11/18/24 22:00 36.7 C 82 20 124/75 94 11/18/24 21:20 76 11/18/24 20:30 82 22 116/75 94 O2 Del Method 11/19/24 07:22 11/19/24 06:08 11/19/24 05:53 11/19/24 02:42 Room Air 11/18/24 23:29 11/18/24 22:59 11/18/24 22:00 Room Air 11/18/24 21:20 11/18/24 20:30 PG Care Time/CCT Total # of Minutes Spent Total Time Spent with Patient: Total time spent is greater than 50% in coordination of care (as documented) at patient's floor/unit and/or counseling patient: C[place] [address] SUB INP/OBS CARE 3/50MIN Patient Type Established Medical Decision Making High Complexity Diagnoses SBO (small bowel obstruction) K56.609 Cerebrovascular accident (CVA), unspecified mechanism I63.9 CVA mechanism: unspecified Coronary artery disease involving [place] coronary artery of [place] heart without angina pectoris I25.10 Associated angina: without angina Coronary Disease-Associated Artery/Lesion type: [place] artery [place] vs. transplanted heart: [place] heart HTN (hypertension) with goal to be determined I10 Type 2 diabetes mellitus E11.9 (2) CVA (cerebral vascular accident) CVA mechanism: unspecified Qualified Code(s): I63.9 - Cerebral infarction, unspecified (3) CAD (coronary artery disease) Associated angina: without angina Coronary Disease-Associated Artery/Lesion type: [place] artery [place] vs. transplanted heart: [place] heart Qualified Code(s): I25.10 - Atherosclerotic heart disease of [place] coronary artery without angina pectoris
--- NOTE | 2024-11-19 08:03 | Surgery Progress Note ---
Date of Service November 19, 2024 Assessment & Plan (1) SBO (small bowel obstruction): Plan: Pt with history of UC s/p total colectomy with J pouch here pain/n/v and imaging with concerns of SBO and gastritis WBC 3.7, Hbg 13. Vitals stable Pt reports feeling better than admission. he denies much pain or nausea and he is passing gas. is burping a little bit Abdomen is soft and not overly tender Okay for sips/chips for now Will obtain KUB for further info....if improvement maybe consider clears On IV famotidine and GI has been consulted given findings of gastritis on CT scan as above. small bm last night. +flatus. continue conservative management. will consider sbft if no improvement soon. Admission and Anticipated Discharge Date Admission Date: November 18, 2024 Subjective Patient feeling fairly well. Feels like he is having "hunger pains" not necessarily abdominal pain that brought him in. He states he is passing gas. No BM since admission. Little bit of burping. Reports EGD years ago. Physical Exam Physical Exam: awake/alert, no distress Gastrointestinal (Abdomen): Percussion/Palpation: abdomen soft; abdomen nontender Results & Data Vital Signs (Past 12 Hours) Vital Signs Temp Pulse Pulse Resp BP BP Pulse Ox 11/19/24 07:22 74 11/19/24 06:08 68 114/69 11/19/24 05:53 68 122/65 11/19/24 02:42 98.8 F 75 20 113/67 94 11/18/24 23:29 68 107/68 11/18/24 22:59 70 11/18/24 22:00 98.1 F 82 20 124/75 94 11/18/24 21:20 76 11/18/24 20:30 82 22 116/75 94 O2 Del Method 11/19/24 07:22 11/19/24 06:08 11/19/24 05:53 11/19/24 02:42 Room Air 11/18/24 23:29 11/18/24 22:59 11/18/24 22:00 Room Air 11/18/24 21:20 11/18/24 20:30 PG Care Time/CCT Total # of Minutes Spent Total Time Spent with Patient: Total time spent is greater than 50% in coordination of care (as documented) at patient's floor/unit and/or counseling patient: Coding Level of Care Code 65416 SUB INP/OBS CARE 06/22MIN Diagnoses SBO (small bowel obstruction) K56.609
--- NOTE | 2024-11-19 09:14 | XRay Report ---
KUB HISTORY: eval bowel gas pattern/sbo COMPARISON STUDY: CT scan yesterday. FINDINGS: There is moderate retained stool. There is retained contrast in the mildly distended urinar y bladder. There is small bowel distention at the left abdomen measuring up to 6 cm at the left upper quadrant, stable. No colonic distention is seen. No gross free air. IMPRESSION: Stable small bowel distention. ACT 112: Negative or not required by law. The above report was generated using voice recognition software. It may contain grammatical, syntax o r spelling errors. Electronically signed by: Salvador Mcmillan M.D. 11/19/2024 9:13 AM
[2024-11-19] MEDS: FAMOTIDINE 20MG IV PUSH 20 MG/5 ML SYR IV SCH (10:10)
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
[2024-11-20 07:40] LABS: Albumin Globulin Ratio 1.6 (0.9-2); Albumin Level 3.5 gm/dl (3.4-5.0); BUN Creatinine Ratio 24.8 (10-20); Bilirubin,Total 0.9 mg/dl (0.2-1.0); C Reactive Protein 10.67 mg/dl (0-0.5); Calcium 8.3 mg/dl (8.6-10.3); Creatinine Clr Calc Pharmacy 70.1 ml/min; Globulin 2.2 gm/dl (2.5-4.0); Potassium 3.7 mmol/L (3.5-5.1); Total Protein 5.7 gm/dl (6.0-8.3)
[2024-11-20 07:45] LABS: Basophils # (auto) 0.02 K/uL (0.00-0.20); Basophils % (auto) 0.5 %; Eosinophils # (auto) 0.14 K/uL (0.00-0.50); Eosinophils % (auto) 3.6 %; Hematocrit (blood only) 38.4 % (42.0-52.0); Hemoglobin 12.2 g/dl (14.0-18.0); Immature Granulocytes # (auto) 0.02 K/uL (0.01-0.20); Immature Granulocytes % (auto) 0.5 %; Lymphocytes # (auto) 0.77 K/uL (1.20-3.40); Lymphocytes % (auto) 19.8 %; Mean Corpuscular Hemoglobin 25.6 pg (25.0-34.0); Mean Corpuscular Hgb Conc 31.8 g/dL (32.0-36.0); Mean Corpuscular Volume 80.5 fL (80.0-100.0); Mean Platelet Volume 10.1 fL (9.4-12.4); Monocytes # (auto) 1.02 K/uL (0.11-0.59); Monocytes % (auto) 26.3 %; Neutrophils # (auto) 1.91 K/uL (1.40-6.50); Neutrophils % (auto) 49.3 %; Platelet Count 175 K/uL (130-400); RDW Coefficient of Variation 15.7 % (11.5-14.5); RDW Standard Deviation 45.2 fL (36.4-46.3); Red Blood Count 4.77 M/uL (4.70-6.10); White Blood Count 3.88 K/ul (4.8-10.8)
--- NOTE | 2024-11-20 10:37 | Gastroenterology Progress Note ---
Date of Service November 20, 2024 Assessment & Plan (1) SBO (small bowel obstruction): (2) Abnormal CT of the abdomen: Plan Patient is feeling much improved. I had discussed case with Dr. Ramirez. Will plan to proceed with setting up an EGD to assess CT findings in stomach and will also add a pouchoscopy since he is due to assess for any possible Crohn's disease of small bowel. - continue with clears today. - will plan to give a mag citrate tomorrow morning and tap water enemas tomorrow morning. - will plan for EGD/pouchoscopy tomorrow, 11/21/24. Admission and Anticipated Discharge Date Admission Date: November 18, 2024 Supervising Physician Co-Signing Physician Notes The patient was seen and examined. Recent labs, data and notes were reviewed. We will perform upper endoscopy to evaluate the abnormal thickening noted on CT imaging which I suspect is gastritis as well as simultaneous evaluation of the patient's J-pouch and ileocolonic anastomosis with the intent on evaluate the distal small bowel and ruling out any possible inflammatory bowel disease in that area. Further recommendations to follow after procedures. Subjective Patient tells me that he feels much better. He has had several bowel movements over night. he has started a clear liquid diet and seems to be tolerating this. The remainder of the GI ROS were unremarkable. Review of Systems Review of Systems: All systems reviewed & are unremarkable except as noted in HPI & below Physical Exam Constitutional: WD/WN, vitals as above Respiratory: normal respiratory effort, lungs clear to auscultation Cardiovascular: Rate/Rhythm: regular rate and regular rhythm Gastrointestinal (Abdomen): normal bowel sounds, soft, nontender, no hepatosplenomegaly Psychiatric: Orientation: alert and oriented x 3 Affect: euthymic affect Results & Data Results & Data Vital Signs (Past 12 Hours) Vital Signs Temp Pulse Pulse Pulse Resp BP BP 11/20/24 07:35 98.2 F 64 18 120/80 11/20/24 07:17 70 11/20/24 06:22 67 102/66 11/20/24 05:56 71 120/71 11/20/24 04:00 98.2 F 70 20 100/65 11/20/24 02:00 89 117/81 11/20/24 01:48 100 H 108/75 11/19/24 23:20 98.6 F 69 20 119/60 Pulse Ox O2 Del Method 11/20/24 07:35 95 Room Air 11/20/24 07:17 11/20/24 06:22 11/20/24 05:56 11/20/24 04:00 96 Room Air 11/20/24 02:00 11/20/24 01:48 11/19/24 23:20 92 Room Air Coding Level of Care Code 35247 SUB INP/OBS CARE 235MIN Diagnoses SBO (small bowel obstruction) K56.[address] of the abdomen R93.5
--- NOTE | 2024-11-20 12:50 | Hospitalist Progress Note ---
Date of Service November 20, 2024 Assessment & Plan (1) SBO (small bowel obstruction): (2) CVA (cerebral vascular accident): (3) CAD (coronary artery disease): (4) HTN (hypertension) with goal to be determined: (5) Type 2 diabetes mellitus: Plan 69-year-old male with a history of colectomy and J-pouch due to UC and no prior SBO who presents with a high-grade SBO not appearing to involve the J-pouch #High-grade SBO CTA/P: High-grade bowel obstruction at the distal ileum. Indeterminate adrenal nodule pending dedicated MRI pending. Additionally gastric antrum thickening suspicious for gastritis but from which neoplasm is not excluded. Case was reviewed between ER and Dr. Orellana, general surgery. Obstruction does not appear to involve the J-pouch. Agree with admission and medical management at this time KUB revealed stable small bowel obstruction on 11/19, will plan to advance to clears on the evening of 11/19 No recurrence of nausea and vomiting; NG tube deferred General Surgery consulted, following; conservative measures for now Continue LR 120/h -> 80/h (set to end on 11/20; add on additional fluids PRN) At risk of adhesional disease due to prior colectomy due to UC and past cholecystectomy Mild hyperbilirubinemia without transaminitis, s/p past cholecystectomy - Massive BM on 11/19 PM, tolerating CLD #Gastric inflammation ? Gastritis on CT, malignant process is not excluded Patient has not had an EGD in over 2 years. Previously followed with [facility] consulted for EGD/Lissie on 11/21 Continue CLD, NPO after MN #Mobitz type II Notified by telemetry on 11/19 that patient had a brief episode of Mobitz type II Hemodynamically stable at that time; VSS; HR 64bpm Clinically, patient is asymptomatic; no chest palpitations, lightheadedness, or dizziness ? Could be secondary to holding medications in the setting of SBO Transcutaneous pacer pads in place in the event that this develops to third- degree block Continuous telemetry monitoring for now #Type II DM Home antiglycemic's held Goal BSG [id number] Lantus home dose 12 units reduced to 7 units while NPO CF 50 Glucose checks changed to ACHS #CAD, hypertension, hyperlipidemia Patient with history of CAD with WILLIS to LAD, WILLIS to PDA 2000, WILLIS to LAD and WILLIS to PDA 03/2012 Lisinopril held while n.p.o. Metoprolol 25 mg daily converted to IV 2.5 mg tartrate every 6 hours while NPO, change back to oral dose - Resume aspirin 11/21 #S/p total colectomy and J-pouch Due to ulcerative colitis and concern for malignancy. Colon biopsies did not have evidence of malignancy however due to recurrent UC and persistent concern for risk of this ultimately was recommended for colectomy. No complications since no prior SBO #Resting tremor Patient is on carbidopa/levodopa at home with improvement in his tremor unclear if Parkinson's Held while n.p.o. but can now be resumed Disposition: Continued stay on MedSurg with telemetry DVT prophylaxis: SCDs Diet: CLD, NPO after MN Continued inpt stay until EGD/Lissie tomorrow then likely diet can be advanced and he can be discharged with outpatient follow up. Plan d/w Dr. Desouza. Admission and Anticipated Discharge Date Admission Date: November 18, 2024 Supervising Physician Co-Signing Physician Notes The patient was not seen by me. The chart was reviewed. Case discussed with KAREN Hart. Agree with assessment and plan Subjective Khris was seen today on daily rounds. He is resting comfortably in bed, reports having a large BM yesterday. He has no c/o abd pain, n/v. No cp, palpitations, dizziness or dyspnea. No fever/chills. He was seen by GI this AM, plans for EGD/Lissie tomorrow AM and then potentially d/c after. Review of Systems Review of Systems: All systems reviewed and are unremarkable except as noted in HPI and below. Denies fever, chills, fatigue, headache, nasal congestion, sore throat, cough, chest pain, shortness of breath, palpitations, orthopnea, PND, abdominal pain, n/v, constipation, dysuria, hematuria, frequency, back pain, joint pain or swelling, easy bruising or bleeding, skin lesions or rashes. Physical Exam Physical Exam: GENERAL: 69 yo well-nourished WM. A&Ox4. No distress. LUNGS: Clear to auscultation bilaterally. No W/R/R. CARDIOVASCULAR: Regular rate and rhythm. ABDOMEN: Soft, non-tender and non-distended. BS normoactive x 4 quad. EXTREMITIES: No edema. Non-tender. Peripheral pulses +2/4. SKIN: Warm, dry, intact. No rashes or lesions. Results & Data Results & Data Vital Signs (Past 12 Hours) Vital Signs Temp Pulse Pulse Pulse Resp BP BP 11/20/24 07:35 36.8 C 64 18 120/80 11/20/24 07:17 70 11/20/24 06:22 67 102/66 11/20/24 05:56 71 120/71 11/20/24 04:00 36.8 C 70 20 100/65 11/20/24 02:00 89 117/81 11/20/24 01:48 100 H 108/75 Pulse Ox O2 Del Method 11/20/24 07:35 95 Room Air 11/20/24 07:17 11/20/24 06:22 11/20/24 05:56 11/20/24 04:00 96 Room Air 11/20/24 02:00 11/20/24 01:48 PG Care Time/CCT Total # of Minutes Spent Total Time Spent with Patient: Total time spent is greater than 50% in coordination of care (as documented) at patient's floor/unit and/or counseling patient: 38 minutes Coding Level of Care Code 26602 SUB INP/OBS CARE 2/35MIN Diagnoses SBO (small bowel obstruction) K56.609 Cerebrovascular accident (CVA), unspecified mechanism I63.9 CVA mechanism: unspecified Coronary artery disease involving [place] coronary artery of [place] heart without angina pectoris I25.10 Associated angina: without angina Coronary Disease-Associated Artery/Lesion type: [place] artery [place] vs. transplanted heart: [place] heart HTN (hypertension) with goal to be determined I10 Type 2 diabetes mellitus E11.9 (2) CVA (cerebral vascular accident) CVA mechanism: unspecified Qualified Code(s): I63.9 - Cerebral infarction, unspecified (3) CAD (coronary artery disease) Associated angina: without angina Coronary Disease-Associated Artery/Lesion type: [place] artery [place] vs. transplanted heart: [place] heart Qualified Code(s): I25.10 - Atherosclerotic heart disease of [place] coronary artery without angina pectoris
--- NOTE | 2024-11-20 15:31 | Electrocardiogram Report ---
Test Reason : Blood Pressure : */* mmHG Vent. Rate : 75 BPM Atrial Rate : 75 BPM P-R Int : 152 ms QRS Dur : 98 ms QT Int : 384 ms P-R-T Axes : 40 -18 82 degrees QTcB Int : 428 ms Normal sinus rhythm Low voltage QRS Cannot rule out Anterior infarct , age undetermined Abnormal ECG When compared with ECG of 05-Dec-2023 13:58, Vent. rate has increased by 26 bpm Minimal criteria for Anterior infarct are now Present Confirmed by Mitul Casillas ([id number]) on 11/20/2024 3:31:04 PM Referred By: REFERRED SELF Confirmed By: Mitul Casillas
[2024-11-20] MEDS: CARBIDOPA/LEVODOP 10/100MG TAB PO SCH (15:35)
[2024-11-20] MEDS: lisinopril 10 MG TAB PO SCH (21:29)
[2024-11-20] MEDS: TIMOLOL MALEATE 0.5% OP SOLN 5 ML BTL OP SCH (21:30)
[2024-11-21] MEDS: MAGNESIUM CITRATE 296 ML/BTL PO SCH (05:09)
[2024-11-21] MEDS: METOPROLOL SUCC 25MG EXT REL TAB PO SCH (08:41)
--- NOTE | 2024-11-21 09:28 | History & Physical Bridge Note ---
Date of Service November 21, 2024 History & Physical Bridge Note I have examined the patient, reviewed the History & Physical and in the interval since the performance of the History & Physical I have noted the following changes of clinical significance: no changes noted. Patient took mag citrate this morning. Planning for tap water enema later this morning. no chest pain or sob. he has been NPO. no other GI concerns currently. - planning for EGD and pouchoscopy later today. Supervising Physician Co-Signing Physician Notes The patient's recent labs, notes and records were reviewed. Plan for EGD to evaluate gastric thickening as well as colonoscopy to evaluate for any ileitis possible Crohn's disease. Further recommendations to follow thereafter.
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
[2024-11-21 12:57] VITALS: TEMP 97.3
[2024-11-21] MEDS ORDERED: ePHEDrine sulfate 50 MG/5 ML SYR ONE (14:05)
[2024-11-21] MEDS ORDERED: LIDOCAINE 2% 2 ML VIAL/AMP(20MG/ML) INFIL ONE (14:05)
[2024-11-21] MEDS ORDERED: PROPOFOL IV EMULSION 10 MG/ML 20 ML VIAL IV ONE (14:05)
--- NOTE | 2024-11-21 14:29 | GI REPORT ---
[facility] Patient: JOVANNI BAUTISTA : 1955 Sex at : Male Age: 69 Years Procedure: Upper GI endoscopy Date: 11/21/2024 Attending Physician: Domenic Ramirez MD Referring MD: Referred Self; Bertrand Sprague M.d. Indications: - Abnormal CT of the GI tract Medications: - See the Anesthesia note for documentation of the administered medications Complications: - No immediate complications. Estimated Blood Loss: - Estimated blood loss was minimal. Procedure: - ASA Grade Assessment: III - A patient with severe systemic disease. - The heart rate, respiratory rate, oxygen saturations, blood pressure, adequacy of pulmonary ventilation, and response to care were monitored throughout the procedure. - The egd scope was introduced through the mouth and advanced to the third part of the duodenum. - The upper GI endoscopy was accomplished without difficulty. - The patient tolerated the procedure well. Findings: - The duodenal bulb, second portion of the duodenum and third portion of the duodenum were normal. Biopsies were taken with a cold forceps for histology. - Localized mild inflammation characterized by erosions and erythema was found in the gastric antrum. Biopsies were taken with a cold forceps for histology. - Diffuse mildly erythematous mucosa was found in the gastric body. Biopsies were taken with a cold forceps for histology. - The Z-line was regular and was found 38 cm from the incisors. This was biopsied with a cold forceps for evaluation to rule out Edwards's Esophagus. Impression: - Normal duodenal bulb, second portion of the duodenum and third portion of the duodenum. Biopsied. - Gastritis, characterized by erosions and erythema. Biopsied. - Erythematous mucosa in the gastric body. Biopsied. - Z-line regular, 38 cm from the incisors. Biopsied. Recommendation: - Await pathology results. - Continue present medications. - Patient has a contact number available for emergencies. The signs and symptoms of potential delayed complications were discussed with the patient. Return to normal activities tomorrow. Written discharge instructions were provided to the patient. - PPi once daily Procedure Code(s): - 49146, Esophagogastroduodenoscopy, flexible, transoral; with biopsy, single or multiple Diagnosis Code(s): - R93.3, Abnormal findings on diagnostic imaging of other parts of digestive tract - K29.70, Gastritis, unspecified, without bleeding - K31.89, Other diseases of stomach and duodenum CPT(R) - 2023 copyright [employer]. All Rights Reserved. The CPT codes, CCI edits and ICD codes generated are intended as suggestions and were generated based on input data. These codes are preliminary and upon sports commentator review may be revised to meet current compliance and payer requirements. The provider is responsible for the final determination of appropriate codes, and modifiers. Domenic Ramirez MD This document has been electronically signed. Note Initiated:11/21/2024 Note Completed:11/21/2024 2:29 PM [email or web address]\Data\Provation\Results\LIVE\[id number].pdf
--- NOTE | 2024-11-21 14:38 | Anesthesiology Progress Note ---
Date of Service November 21, 2024 Anesthesia Post Procedure Vital Signs Vital Signs: Temp Pulse Pulse Pulse Resp BP Pulse Ox 11/21/24 14:32 48 L 14 119/73 96 11/21/24 14:17 54 L 14 103/66 97 11/21/24 12:50 36.3 C L 47 L 16 112/64 97 11/21/24 08:42 54 L 11/21/24 07:54 36.5 C 51 L 16 108/61 97 11/21/24 05:42 48 L 11/21/24 04:50 36.4 C L 52 L 18 108/65 95 11/21/24 01:24 60 11/20/24 23:50 36.8 C 58 L 18 119/75 96 11/20/24 20:20 36.9 C 62 18 128/78 96 11/20/24 15:57 73 11/20/24 15:22 36.7 C 81 18 132/79 93 O2 Del Method 11/21/24 14:32 Room Air 11/21/24 14:17 Room Air 11/21/24 12:50 Room Air 11/21/24 08:42 11/21/24 07:54 Room Air 11/21/24 05:42 11/21/24 04:50 Room Air 11/21/24 01:24 11/20/24 23:50 Room Air 11/20/24 20:20 Room Air 11/20/24 15:57 11/20/24 15:22 Room Air Pain Intensity Abdomen: Pain Intensity: 4 Transfer of Care Handoff Completed per policy Notes Mental Status: alert / awake / arousable and participated in evaluation Patient Amnestic to Procedure: Yes Nausea / Vomiting: adequately controlled Pain: adequately controlled Airway Patency, RR, SpO2: stable & adequate BP & HR: stable & adequate Hydration State: stable & adequate Anesthetic Complications: no major complications apparent and Pt Satisfied with anesthetic care
--- NOTE | 2024-11-21 14:44 | GI REPORT ---
[facility] Patient: JOVANNI BAUTISTA : 1955 Sex at : Male Age: 69 Years Procedure: Colonoscopy Date: 11/21/2024 Attending Physician: Domenic Ramirez MD Referring MD: Referred Self; Bertrand Sprague M.d. Indications: - Abnormal CT of the GI tract - Personal history of ulcerative colitis Medications: - See the Anesthesia note for documentation of the administered medications Complications: - No immediate complications. Estimated Blood Loss: - Estimated blood loss was minimal. Procedure: - ASA Grade Assessment: III - A patient with severe systemic disease. - The heart rate, respiratory rate, oxygen saturations, blood pressure, adequacy of pulmonary ventilation, and response to care were monitored throughout the procedure. - The pediatric colonoscope was introduced through the anus and advanced to the terminal ileum. - The colonoscopy was performed without difficulty. - The quality of the bowel preparation was good. - The patient tolerated the procedure well. Findings: - The digital rectal exam was normal. - The nay-terminal ileum appeared normal. - Localized mild inflammation characterized by erythema was found in the surgical anastomosis. Biopsies were taken with a cold forceps for histology. Minimal inflammation at the enteroenteric anastomosis without other inflammation seen after maximal intubation of the ileum with the pediatric colonoscope. - There was evidence of a prior ileo-colonic anastomosis in the rectum. This was patent and was characterized by erythema. The anastomosis was traversed. - The J pouch appears normal. - The rectum appeared normal. Biopsies were taken with a cold forceps for histology. Impression: - The examined portion of the ileum was normal. - Mild inflammation was found in the ileum secondary to ileitis. Biopsied. - Minimal inflammation at the enteroenteric anastomosis without other inflammation seen after maximal intubation of the ileum with the pediatric colonoscope. - Patent ileo-colonic anastomosis, characterized by erythema. - The J pouch appears normal. - The rectum is normal. Biopsied. Recommendation: - Await pathology results. - Repeat colonoscopy in 2 years for surveillance. - Resume previous diet. - Follow up with regular counter supply worker. Ok for hospital discharge from GI perspective. Procedure Code(s): - 34370, Colonoscopy, flexible; with biopsy, single or multiple Diagnosis Code(s): - R93.3, Abnormal findings on diagnostic imaging of other parts of digestive tract - K51.90, Ulcerative colitis, unspecified, without complications - K52.9, Noninfective gastroenteritis and colitis, unspecified - Z98.0, Intestinal bypass and anastomosis status CPT(R) - 2023 copyright [employer]. All Rights Reserved. The CPT codes, CCI edits and ICD codes generated are intended as suggestions and were generated based on input data. These codes are preliminary and upon outpatient coder review may be revised to meet current compliance and payer requirements. The provider is responsible for the final determination of appropriate codes, and modifiers. Domenic Ramirez MD This document has been electronically signed. Note Initiated:11/21/2024 Note Completed:11/21/2024 2:42 PM [email or web address]\Provation\Results\LIVE\[id number]
[2024-11-21 15:01] VITALS: RESP 16
[2024-11-21 15:42] VITALS: BP 133/82; O2SAT 100
--- NOTE | 2024-11-21 15:56 | Discharge Summary ---
Discharge Summary Date of Service November 21, 2024 Principal Dx & Hospital Course #1 = Principal Diagnosis (1) SBO (small bowel obstruction): (2) CVA (cerebral vascular accident): (3) CAD (coronary artery disease): (4) HTN (hypertension) with goal to be determined: (5) Type 2 diabetes mellitus: Plan 69-year-old male with a history of colectomy and J-pouch due to UC and no prior SBO who presents with a high-grade SBO not appearing to involve the J-pouch #High-grade SBO CTA/P: High-grade bowel obstruction at the distal ileum. Indeterminate adrenal nodule pending dedicated MRI pending. Additionally gastric antrum thickening suspicious for gastritis but from which neoplasm is not excluded. Case was reviewed between ER and Dr. Orellana, general surgery. Obstruction does not appear to involve the J-pouch. Agree with admission and medical management at this time KUB revealed stable small bowel obstruction on 11/19, will plan to advance to clears on the evening of 11/19 No recurrence of nausea and vomiting; NG tube deferred General Surgery consulted, following; conservative measures for now Continue LR 120/h -> 80/h (set to end on 11/20; add on additional fluids PRN) At risk of adhesional disease due to prior colectomy due to UC and past cholecystectomy Mild hyperbilirubinemia without transaminitis, s/p past cholecystectomy - Massive BM on 11/19 PM, tolerating CLD #Gastric inflammation ? Gastritis on CT, malignant process is not excluded Patient has not had an EGD in over 2 years. Previously followed with [facility] consulted for EGD/Damar on 11/21 Continue CLD, NPO after MN #Mobitz type II Notified by telemetry on 11/19 that patient had a brief episode of Mobitz type II Hemodynamically stable at that time; VSS; HR 64bpm Clinically, patient is asymptomatic; no chest palpitations, lightheadedness, or dizziness ? Could be secondary to holding medications in the setting of SBO Transcutaneous pacer pads in place in the event that this develops to third- degree block Continuous telemetry monitoring for now #Type II DM Home antiglycemic's held Goal BSG [id number] Lantus home dose 12 units reduced to 7 units while NPO CF 50 Glucose checks changed to ACHS #CAD, hypertension, hyperlipidemia Patient with history of CAD with WILLIS to LAD, WILLIS to PDA 2000, WILLIS to LAD and WILLIS to PDA 03/2012 Lisinopril held while n.p.o. Metoprolol 25 mg daily converted to IV 2.5 mg tartrate every 6 hours while NPO, change back to oral dose - Resume aspirin 11/21 #S/p total colectomy and J-pouch Due to ulcerative colitis and concern for malignancy. Colon biopsies did not have evidence of malignancy however due to recurrent UC and persistent concern for risk of this ultimately was recommended for colectomy. No complications since no prior SBO #Resting tremor Patient is on carbidopa/levodopa at home with improvement in his tremor unclear if Parkinson's Held while n.p.o. but can now be resumed Disposition: Continued stay on MedSurg with telemetry DVT prophylaxis: SCDs Diet: CLD, NPO after MN Continued inpt stay until EGD/Damar tomorrow then likely diet can be advanced and he can be discharged with outpatient follow up. Plan d/w Dr. Desouza. Admission HPI Per Admitting Provider Khris is seen for a bowel obstruction. He felt OK until yesterday afternoon. Starting having pain in his lower abdomen bilaterally. No fevers. Gets chills intermittently normally, no change Last BM was Monday night (~2 days ago). Not passing any gas since night prior NO prior history of SBO Has a hisory of total colectomy and J pouch, no complications from these. No formed BM in 20 years as a result of this, generally thin and loose. Had a history of ulcerative colitis and had q2y colonoscopies and had a developing mass concerning for cancer. Was recommended total colectomy --> path did not show cancer but due to 11 years of UC and concern for suboptimal bx. Also w/ history of cholecystectomy ~2000 No recent chest pain or chest pressure. Fairly active, can shovel and go up stairs with no chest pressure or dyspnea. No jaw or arm pain. History of a CVA. Residual LEFT arm and hand impaired coordination and some reduced sensation. Strength improved since a shoulder replacement, but is a little worse qualitatively. Follows with [facility]. Hasn't been seen in two years. Had been getting sigmoid scopes prior and intermittent EGDs although has not had 1 of these recently Medical History: Reviewed Medications: Reviewed Surgical History: Reviewed Family history: Reviewed Allergies: Reviewed Social History: Chew tobacco, one tin every few days. Alochol intermittently, not daily Code Status: DNR/DNI Discharge Plan Discharge Items Patient Disposition: Home - Self-Care Reason For Visit: HIGH GRADE SBO Discharge Diagnosis: high grade SBO Condition on Discharge: Fair Activity: Resume your previous activity Non-emergency contact: Primary Care Provider Call non-emergency contact if: you have any medication questions Follow-up/Referrals: Armand Parrish [Primary Care Provider] - Diet: Low Fiber Addtl Attending Provider Instructions: recommend followup with PCP and outpatient Field Recorder. Will recommend a low fiber diet for the next week Pending Studies at Discharge: No Stand-Alone Forms: My Shot Stats, Smoking Cessation Medications and DC Order Prescriptions: Continued insulin glargine [Basaglar KwikPen U-100 Insulin] 100 unit/mL (3 mL) insulin pen 12 unit subcut QPM 90 Days Qty: 15 3RF (DME) pen needle, diabetic [Sure-Fine Pen [place]] 31 gauge x 5/16" needle See Rx Instructions .Route Qty: 100 3RF Rx Instructions: Use one per day Jardiance 25 mg tablet 25 mg PO QAM Qty: 90 1RF metoprolol succinate 25 mg tablet extended release 24 hr 25 mg PO QAM Qty: 90 3RF lisinopril 10 mg tablet 10 mg PO QPM Qty: 90 3RF simvastatin 20 mg tablet 20 mg PO HS Qty: 90 3RF (DME) OneTouch Verio test strips Strip See Rx Instructions .ROUTE .MEDSUPPLY Qty: 10 Rx Instructions: test 1 time daily aspirin 81 mg tablet,delayed release (DR/EC) 81 mg PO DAILY Qty: 30 2RF Rx Instructions: 11/18-otc unable to verify (DME) FreeStyle Delia 3 Sensor Device See Rx Instructions .Route Rx Instructions: As directed timolol 0.5 % drops 1 drp ophthalmic (eye) QPM Patient Comments: both eyes latanoprost 0.005 % drops 1 drp ophthalmic (eye) QPM Patient Comments: both eyes mecobalamin (vitamin B12) 1,000 mcg tablet,chewable 1,000 mcg PO DAILY Rx Instructions: 11/18-otc unable to verify cyanocobalamin (vitamin B-12) 1,000 mcg/mL kit 1,000 mcg IM MONTHLY Rx Instructions: DONE AT MD OFFICE 11/18-unable to verify cholecalciferol (vitamin D3) [Vitamin D3] 5,000 unit tablet 5,000 unit PO DAILY PRN (Reason: as needed) Rx Instructions: 11/18-otc unable to verify omega-3 fatty acids Capsule 1,000 mg PO DAILY Rx Instructions: 11/18-otc unable to verify magnesium 100 mg Tablet 200 mg PO DAILY Rx Instructions: 11/18-otc unable to verify metformin 500 mg tablet extended release 24 hr 1,000 mg PO BID Rx Instructions: 1000 mg qam, 500mg lunch, 500mg dinner oxycodone 5 mg tablet 5 mg PO Q6H PRN (Reason: pain) Qty: 30 0RF Rx Instructions: last filled 07/15/24 7 day supply #30 carbidopa-levodopa 10-100 mg tablet 1 tab PO BID Rx Instructions: morning and mid afternoon Discharge Orders: Discharge Order (Routine); Ordered 11/21/24 Ordered By: Bertrand Sprague Admission Data Admit Date/Time: 11/18/24 18:17 Attending Provider: Bertrand Sprague Admit Provider: Medardo Clayton Primary Care Provider: Armand Parrish Other Providers: Medardo Clayton; Angelica Lomas Jr; Douglas Orellana Hospital Stay Data Consultations 11/18/24 17:30 Consult Gastroenterology Routine Consult General Surgery Routine 11/18/24 17:59 ED Decision to Admit Stat Procedures Performed Operation Date: 11/21/24 16:30 Actual Procedures p EGD Biopsy Cytology - Domenic Ramirez MD s Colonoscopy Biopsy Cytology - Domenic Ramirez MD Diagnostic Imagining Performed 11/18/24 14:28 CT abd pelvis IV con only Stat Pending Results Patient Have Any Pending Studies at Discharge: No Discharge Instructions Given to Patient (Per Discharging Provider) recommend followup with PCP and outpatient Field Recorder. Will recommend a low fiber diet for the next week Coding Diagnoses SBO (small bowel obstruction) K56.609 Cerebrovascular accident (CVA), unspecified mechanism I63.9 CVA mechanism: unspecified Coronary artery disease involving [place] coronary artery of [place] heart without angina pectoris I25.10 Coronary Disease-Associated Artery/Lesion type: [place] artery [place] vs. transplanted heart: [place] heart Associated angina: without angina HTN (hypertension) with goal to be determined I10 Type 2 diabetes mellitus E11.9
[2024-11-21] MEDS: ASPIRIN 81 MG ECTAB PO SCH (16:02)
[2024-11-21 16:28] VITALS: PULSE 61
== END 2024-11-21 17:55 | disposition home or self-care (01) | DRG 387 ==
LOC: ED 14:03 → 2N 18:17 → SUATTDRO 18:17 → 2N 20:46